=== PATIENT | female | born 1955 | race Caucasian/White ===

== ENCOUNTER 2019-10-23 15:20 | Outpatient (REF) | payer OTHER, SELFPAY ==
--- NOTE | 2019-10-23 13:00 | PAPFT_PTH ---
PATIENT: Rita Haider LOC: [facility] U#:[id number] AGE/SX: 64/F ROOM: RE10/23/[address]: Sophy Gomez : 1955 BED: DIS: 10/23/2019 SPEC #: [id number] RECD: 10/24/19 13:03 STATUS: FLORINA BLACKWELL #: [id number] JHONATAN: 10/23/19 13:[address]: Sophy Gomez DEPT: [facility] Cytology RECD BY: Harriet Aguilar Tissues: 1 - CX/ENDOCX FOR PAP SMEARS Procedures: PAP THIN PREP/UVM Screening Comments: [id number]
== END 2019-10-23 15:40 ==
LOC: NCHCN 15:20
PROVIDERS: PCP Physician Assistant Medical; Visit Provider Physician Assistant Medical
DX: Z12.4 Encounter for screening for malignant neoplasm of cervix (principal); Z01.419 Encounter for gynecological examination (general) (routine) without abnormal findings
CPT/HCPCS: 88142

== ENCOUNTER 2019-12-25 10:55 | Outpatient (REF) | payer OTHER, SELFPAY ==
[2019-12-25 21:40] LABS: ALT 44 U/L (14-59); AST 27 U/L (15-37); Albumin 3.9 g/dL (3.4-5.0); Alkaline Phosphatase 90 U/L (46-116); Anion Gap 11.2 mmol/L (3-11); BUN 18 mg/dL (7-18); Bilirubin, Total 0.3 mg/dL (0.2-1.0); CO2 25.8 mmol/L (21.0-32.0); CREATININE 0.79 mg/dL (0.55-1.02); Calcium 8.9 mg/dL (8.5-10.1); Calculated LDL 111 mg/dL (<100); Chloride 106 mmol/L (98-107); Cholesterol 209 mg/dL (<200); Glucose 96 mg/dL (74-106); HDL Cholesterol 63 mg/dL (40-60); Potassium 4.5 mmol/L (3.5-5.1); Sodium 143 mmol/L (136-145); TSH (W/Ref FT4) 0.59 uIU/mL (0.36-3.74); Total Protein 6.8 g/dL (6.4-8.2); Triglyceride 175 mg/dL (<150)
== END 2019-12-25 11:15 ==
LOC: NCHCN 10:55
PROVIDERS: PCP Physician Assistant Medical; Visit Provider Physician Assistant Medical
DX: Z00.00 Encounter for general adult medical examination without abnormal findings (principal); Z13.220 Encounter for screening for lipoid disorders; Z13.29 Encounter for screening for other suspected endocrine disorder; Z13.228 Encounter for screening for other metabolic disorders
CPT/HCPCS: 80053; 80061; 84443

== ENCOUNTER → 2020-08-27 17:32 | Outpatient (REF) | payer OTHER, SELFPAY ==
[2020-08-27 20:14] LABS: Anion Gap 8.5 mmol/L (3-11); BUN 16 mg/dL (7-18); CO2 28.5 mmol/L (21.0-32.0); CREATININE 0.69 mg/dL (0.55-1.02); Calcium 9.2 mg/dL (8.5-10.1); Chloride 104 mmol/L (98-107); Glucose 83 mg/dL (74-106); Magnesium 1.8 mg/dL (1.8-2.4); Potassium 4.5 mmol/L (3.5-5.1); Sodium 141 mmol/L (136-145)
[2020-08-27 20:19] LABS: Ferritin 1642 ng/mL (8-252)
[2020-08-29 09:31] LABS: ALT 76 U/L (14-59); AST 40 U/L (15-37); Albumin 4.4 g/dL (3.4-5.0); Alkaline Phosphatase 86 U/L (46-116); Bilirubin, Direct 0.13 mg/dL (0.00-0.20); Bilirubin, Total 0.6 mg/dL (0.2-1.0); Total Protein 7.2 g/dL (6.4-8.2)
[2020-08-29 10:05] LABS: Iron 204 ug/dL (50-170); Total Iron Binding Capacity 199 ug/dL (250-450); Transferrin Sat 103 % (15-50)
== END ==
LOC: NCHCN 17:32
PROVIDERS: PCP Physician Assistant Medical; Visit Provider Physician Assistant Medical
DX: G25.81 Restless legs syndrome (principal); R79.0 Abnormal level of blood mineral
CPT/HCPCS: 80048; 80076; 82728; 83540; 83550; 83735

== ENCOUNTER 2020-09-16 19:42 | Outpatient (REF) | payer OTHER, SELFPAY ==
[2020-09-16 19:55] LABS: Abs Immature Grans 0.03 10^3/uL (0.0-0.06); Absolute Basophil Count 0.03 10^3/uL (0.0-0.2); Absolute Eosinophil Count 0.04 10^3/uL (0.0-0.7); Absolute Lymphocyte Count 1.98 10^3/uL (1.2-3.4); Absolute Monocyte Count 0.47 10^3/uL (0.1-0.8); Absolute Neutrophil Count 4.12 10^3/uL (1.2-6.7); Basophils % 0.4; Eosinophils % 0.6; HCT 42.3 % (36.0-46.0); Immature Grans % 0.4; Lymphocytes % 29.7; MCH 33.1 pg (27.0-33.0); MCHC 33.1 % (32.0-36.0); MPV 10.9 fL (8.0-11.0); Neutrophils % 61.9; Nucleated RBC 0 %; Platelet Count 209 10^3/uL (130-400); RBC 4.23 10^6/uL (3.93-5.22); RDW 12.7 % (11.7-14.6); RDW-SD 46.7 fL; WBC 6.67 10^3/uL (4.4-10.8)
== END 2020-09-16 20:02 ==
LOC: NCHCN 19:42
PROVIDERS: PCP Physician Assistant Medical; Visit Provider Physician Assistant Medical
DX: R79.0 Abnormal level of blood mineral (principal)
CPT/HCPCS: 85025

== ENCOUNTER 2020-09-23 00:29 | Outpatient (CLI) | payer OTHER, SELFPAY ==
--- NOTE | 2020-09-23 | DI.US_ITS ---
EXAM: US ABDOMEN CLINICAL HISTORY: ELEVATED FERRITIN,R79.89,? OCCULT LIVER DISEASE TECHNIQUE: Ultrasound abdomen performed using standard protocol. COMPARISON: No exams were available for comparison FINDINGS: ABDOMINAL AORTA AND IVC: Visualized portions normal caliber. PANCREAS: Normal where visualized. LIVER: There is diffuse increased echogenicity of the liver. Hepatopedal flow in the Portal Vein. Th e liver measures 14.8 cm in length. GALLBLADDER: No evidence of cholelithiasis. No evidence of wall thickening. No pericholecystic fluid identified. BILIARY SYSTEM: Common bile duct measures < 7 mm. No intrahepatic biliary ductal dilation. BENOIT'S SIGN: Negative. KIDNEYS: Kidneys are symmetric in size. No evidence of renal calculi. No evidence of hydronephrosis. No renal mass or cyst identified. SPLEEN: Not enlarged. ASCITES: None seen. IMPRESSION: Diffuse increased echogenicity of the liver. This may represent fatty infiltration. DATA REPOSITORY:
== END 2020-09-23 00:49 ==
PROVIDERS: PCP Physician Assistant Medical; Visit Provider Internal Medicine Hematology & Oncology
DX: R79.89 Other specified abnormal findings of blood chemistry (principal)
CPT/HCPCS: 76700

== ENCOUNTER 2020-09-30 02:23 | Outpatient (RCR) | payer OTHER, SELFPAY ==
[2020-09-23 09:35] LABS: HCT 42.2 % (36.0-46.0); HGB 14.4 g/dL (11.2-15.7); MCH 33.5 pg (27.0-33.0); MCHC 34.1 % (32.0-36.0); MCV 98.1 fL (80-95); MPV 10.8 fL (8.0-11.0); Platelet Count 165 10^3/uL (130-400); RDW 12.7 % (11.7-14.6); RDW-SD 45.4 fL; WBC 5.28 10^3/uL (4.4-10.8)
[2020-09-30 12:46] LABS: HGB 13.1 g/dL (11.2-15.7); MCH 33.2 pg (27.0-33.0); MCHC 34.5 % (32.0-36.0); MCV 96.2 fL (80-95); MPV 10.3 fL (8.0-11.0); Platelet Count 246 10^3/uL (130-400); RBC 3.95 10^6/uL (3.93-5.22); RDW 12.8 % (11.7-14.6); WBC 8.29 10^3/uL (4.4-10.8)
[2020-09-30 13:32] LABS: ALT 45 U/L (14-59); AST 25 U/L (15-37); Albumin 4.1 g/dL (3.4-5.0); Alkaline Phosphatase 72 U/L (46-116); Anion Gap 9.5 mmol/L (3-11); BUN 15 mg/dL (7-18); Bilirubin, Total 0.4 mg/dL (0.2-1.0); CO2 27.5 mmol/L (21.0-32.0); CREATININE 0.77 mg/dL (0.55-1.02); Calcium 8.7 mg/dL (8.5-10.1); Chloride 103 mmol/L (98-107); GGT 17 U/L (5-55); Glucose 122 mg/dL (74-106); Potassium 3.7 mmol/L (3.5-5.1); Sodium 140 mmol/L (136-145); Total Protein 7.1 g/dL (6.4-8.2)
[2020-09-30 13:33] LABS: Ferritin 1325 ng/mL (8-252)
[2020-10-09 10:49] LABS: Specimen WB Whole Blood
== END 2020-10-07 23:59 | disposition home or self-care (01) ==
LOC: INF 02:23
PROVIDERS: PCP Physician Assistant Medical; Visit Provider Internal Medicine Hematology & Oncology
DX: E83.110 Hereditary hemochromatosis (principal)
CPT/HCPCS: 36415; 80053; 85027; 99195; 81256; 82728; 82977

== ENCOUNTER 2020-11-05 02:45 | Outpatient (RCR) | payer OTHER, SELFPAY ==
[2020-10-08 12:44] LABS: HCT 36.2 % (36.0-46.0); HGB 12.2 g/dL (11.2-15.7); MCH 33.6 pg (27.0-33.0); MCHC 33.7 % (32.0-36.0); MCV 99.7 fL (80-95); MPV 10.1 fL (8.0-11.0); Platelet Count 249 10^3/uL (130-400); RBC 3.63 10^6/uL (3.93-5.22); RDW 13.2 % (11.7-14.6); WBC 6.76 10^3/uL (4.4-10.8)
[2020-10-22 12:44] LABS: HCT 38.1 % (36.0-46.0); HGB 12.9 g/dL (11.2-15.7); MCH 34.3 pg (27.0-33.0); MCHC 33.9 % (32.0-36.0); MCV 101.3 fL (80-95); MPV 10.2 fL (8.0-11.0); Platelet Count 247 10^3/uL (130-400); RBC 3.76 10^6/uL (3.93-5.22); RDW-SD 48.6 fL; WBC 6.02 10^3/uL (4.4-10.8)
[2020-10-22] MEDS: Normal Saline Flush 10 ML SYR IVP (13:15)
[2020-10-22 13:17] LABS: Ferritin 809 ng/mL (8-252)
[2020-10-29 13:01] LABS: HCT 37.5 % (36.0-46.0); HGB 12.7 g/dL (11.2-15.7); MCH 34.7 pg (27.0-33.0); MCHC 33.9 % (32.0-36.0); MCV 102.5 fL (80-95); MPV 10.3 fL (8.0-11.0); Platelet Count 262 10^3/uL (130-400); RBC 3.66 10^6/uL (3.93-5.22); RDW 13.2 % (11.7-14.6); RDW-SD 49.5 fL; WBC 6.08 10^3/uL (4.4-10.8)
[2020-10-29] MEDS: Normal Saline Flush 10 ML SYR IVP (13:49)
[2020-11-05] MEDS: Normal Saline Flush 10 ML SYR IVP (12:34)
[2020-11-05 12:48] LABS: HCT 37.2 % (36.0-46.0); HGB 12.4 g/dL (11.2-15.7); MCH 34.2 pg (27.0-33.0); MCHC 33.3 % (32.0-36.0); MCV 102.5 fL (80-95); MPV 10.3 fL (8.0-11.0); Platelet Count 279 10^3/uL (130-400); RBC 3.63 10^6/uL (3.93-5.22); RDW 12.8 % (11.7-14.6); RDW-SD 47.9 fL; WBC 5.66 10^3/uL (4.4-10.8)
== END 2020-11-07 23:59 | disposition home or self-care (01) ==
LOC: INF 02:45
PROVIDERS: PCP Physician Assistant Medical; Visit Provider Internal Medicine Hematology & Oncology
DX: E83.110 Hereditary hemochromatosis (principal)
CPT/HCPCS: 36415; 85027; 99195; 82728

== ENCOUNTER 2020-11-07 01:41 | Outpatient (CLI) | payer OTHER, SELFPAY ==
--- NOTE | 2020-11-07 12:20 | DI.US_ITS ---
APPROVED REPORT EXAM: Comprehensive 2D, Doppler, and color-flow Echocardiogram Patient Location: Out-Patient Cold Working Inspector: Gabriela Huertas RDCS (AE) Indications: Elevated ferritin Other Information Study Quality: Adequate Conclusion Normal left ventricular wall thickness and chamber size. Estimated ejection fraction is 60%. There are no segmental wall motion abnormalities Normal right ventricular size and systolic function Both atria are normal in size There are no structural or hemodynamically significant valvular abnormalities Trivial circumferential pericardial effusion Wall motion Left Ventricle The left ventricle is normal size. The left ventricular systolic function is normal. The left ventric ular ejection fraction is within the normal range. There is normal left ventricular wall thickness. T here is normal LV segmental wall motion. There is no ventricular septal defect visualized. LVEF is 60 %. Right Ventricle The right ventricle is normal size. The right ventricular systolic function is normal. Atria The left atrium size is normal. The right atrium size is normal. The interatrial septum is intact wit h no evidence for an atrial septal defect. Aortic Valve The aortic valve is normal in structure. Aortic valve is trileaflet. There is no aortic valvular sten osis. No aortic regurgitation is present. Mitral Valve The mitral valve is normal in structure. No evidence of mitral valve stenosis. Trace mitral regurgita tion. Tricuspid Valve The tricuspid valve is normal in structure. There is no tricuspid valve stenosis. Trace tricuspid reg urgitation. Unable to assess PA pressure. Pulmonic Valve The pulmonary valve is normal in structure. There is no pulmonic valvular stenosis. Trace pulmonic re gurgitation. Great Vessels The aortic root is normal in size. The ascending aorta is normal in size. IVC is normal in size and c ollapses >50% with inspiration. Pericardium Trivial circumferential pericardial effusion. 2D Dimensions IVSD d PLAX 0.81 cm F: 0.6-1.0 LV Vol A2C d MOD 80.9 mL LVPW d PLAX 0.81 cm F: 0.6 - 1.0 LV Vol A4C d MOD 75.3 mL LVID d PLAX 4.75 cm F: 3.8 - 5.2 LA vol/ BSA A2C s A-L 30.2 mL/m2 LVDs 3.10 cm F: 2.2 - 3.5 LA vol/ BSA A4C s A-L 30.9 mL/m2 Ao Root d 2.84 cm F: 2.7 - 3.3 LA Vol/ BSA Biplane s A-L 31.7 mL/m2 RA Area A4C 11.88 cm2 LA Area A4C s MOD 17.99 cm2 RA Vol/ BSA A4C s A-L 16.7 mL/m2 LA Area A2C s MOD 17.13 cm2 Ao Asc Diam d 2.98 cm F: 2.3 - 3.1 LV EF A4C MOD 60.0 % LV EF Teichholz 62.7 % LV EF A2C MOD 63.9 % LVEF (Moore's) 61.43 % F: 54 - 74 LV EF Biplane MOD 61.4 % LV Volume 64.71 mL F: 46 - 106 SV 50.12 mL LV Volume Index 38.06 mL/m2 F: 29 - 61 SV Index 29.37 mL/m2 LV Vol Biplane MOD 81.6 mL FS 33.85 % M-Mode TAPSE 2.12 cm (M/F) >1.7 LV Diastology MV E' medial 0.138 (>0.07 m/s) E/A Ratio 1.3 LV E/e MED 7.65 (<14) MV E Vmax 1.06 (0.4-1.3 m/s) MV E' lateral 0.143 (>0.1 m/s) MV A Vmax 0.80 (0.4-1.3 m/s) LV E/e LAT 7.40 (<14) MV E/A Ratio 1.30 MV E/E' medial 7.67 MV E/E' lateral 7.41 Aortic Valve LVOT Area 3.01 cm2 AoV Area Vmax 2.30 cm2 LVOT Vmax 1.34 m/s AoV Area/ BSA (Vmax) 1.35 cm2/m2 LVOT Mean Mikal. 0.77 m/s LEANN Mean Mikal. 2.06 cm2 LVOT Peak Grad 7.1 mmHg LEANN Mean Mikal. Index 1.21 cm2/m2 LVOT Mean Grad 3.0 mmHg LVOT VTI 0.277 m LVOT Diam s 1.95 cm AoV Vmax 1.75 m/s Velocity Ratio 0.76 AoV Mean Mikal. 1.12 m/s AoV Peak Grad 12.2 mmHg LVOT SV 83.39 mL AoV Mean Grad 6.0 mmHg AoV VTI 0.284 m AoV Area VTI 2.94 cm2 AoV Area/ BSA (VTI) 1.72 cm/m2 Mitral Valve MV DT 169 (160-240 msec) MV PHT 49 msec MV Area PHT 4.50 cm2 Pulmonary Valve PV Vmax 1.22 (0.5-1.5 m/s) RVOT Peak Gr. 3.15 mmHg PV Peak Grad 6.0 mmHg RVOT Mean Gr. 1.75 mmHg PV Mean Grad 3.2 mmHg RVOT VTI 0.174 m PV VTI 0.244 m RVOT Vmax 0.89 m/s
== END 2020-11-07 02:01 ==
PROVIDERS: PCP Physician Assistant Medical; Visit Provider Internal Medicine Hematology & Oncology
DX: R79.89 Other specified abnormal findings of blood chemistry (principal)
CPT/HCPCS: 93306

== ENCOUNTER 2020-11-25 01:10 | Outpatient (CLI) | payer OTHER, SELFPAY ==
--- NOTE | 2020-11-25 | DI.MAMMO_ITS ---
EXAM: MG MAMMO SCREENING CLINICAL HISTORY: SCREENING,[facility], [facility],Z00.00 TECHNIQUE: Bilateral full field digital CC and MLO mammographic images were obtained with 3D tomosyn thesis and utilizing computer aided detection (CAD). COMPARISON: Available for comparison. FINDINGS: Masses/Architectural Distortion: There is asymmetric breast tissue in the upper left breast on the me diolateral oblique view this area should be further evaluated with spot compression view. Microcalcifications: No suspicious pleomorphic-type are seen. Skin Thickening/Nipple Retraction: None. IMPRESSION: 1. Asymmetric breast tissue in the upper left breast on the MLO view. 2. Spot compression view and a left breast ultrasound are requested for further evaluation. BI-RADS Category 0 - Assessment Incomplete: Need additional imaging evaluation Breast Density - Category B - Scattered areas of fibroglandular density Breast density category C or D implies that the patient has dense breast tissue. Dense breast tissue is very common and is not abnormal but dense breast tissue can make it harder to find cancer on a ma mmogram. Also, dense breast tissue may increase their breast cancer risk. This information about the result of the mammogram report was provided to the patient to raise their awareness. Use this report when you speak with the patient about their risks for breast cancer, which includes their family hist ory. At that time, you may recommend for more screening tests (Ultrasound or MRI) as they might be us eful based on their risk. A negative radiographic report should not delay biopsy if a dominant or clinically suspicious mass is present. Up to ten percent of cancers are not identified on mammography. A negative report may reinforce clinical impression. Adenosis and dense breasts may obscure an underlying neoplasm. False positive reports average 6 to 10%. Patient will receive a letter notifying them of these results.
== END 2020-11-25 01:30 ==
PROVIDERS: PCP Physician Assistant Medical; Visit Provider Physician Assistant Medical
DX: Z12.31 Encounter for screening mammogram for malignant neoplasm of breast (principal); N64.89 Other specified disorders of breast
CPT/HCPCS: 77063; 77067

== ENCOUNTER 2020-11-29 03:43 | Outpatient (CLI) | payer OTHER, SELFPAY ==
--- NOTE | 2020-11-29 | DI.US_ITS ---
EXAM: MG MAMMO SCREEN CALL BACK UNI and U/S breast LT limited CLINICAL HISTORY: F/U MAMMO, ASYMMETRIC BREAST TISSUE UPPER LT BREAST. TECHNIQUE: Craniocaudal and mediolateral oblique Full Field Digital Mammography views of the left br east with Computer Aided Diagnosis followed by Tomosynthesis and left breast ultrasound. COMPARISON: Comparison with prior examinations. FINDINGS: Mammography/Tomosynthesis: Masses/Architectural Distortion: None seen. Microcalcifictions: No suspicious pleomorphic-type are seen. Skin Thickening/Nipple Retraction: None. Left breast US: Echotexture: Normal appearance of the glandular tissue. Shadowing: No suspicious foci. Cyst: None. Solid lesions: Sonographically benign-appearing lymph nodes are seen in the left axilla. There homog eneously hypoechoic with a vascular echogenic notch. The largest measures 2.4 cm. Ductal dilation: None. IMPRESSION: 1. No evidence of malignancy is noted. 2. Unless there is more urgent need, follow-up screening mammography is recommended, as per [employer] guidelines. 3. The findings were discussed with the patient on the date of the examination. BI-RADS Category 1 - Negative Breast Density - Category B - Scattered areas of fibroglandular density Breast density Category C or D implies that the patient has dense breast tissue. Dense breast tissue can make it harder to find cancer on a mammogram. Dense breast tissue is also associated with an incr eased risk of breast cancer. This information about the result of the mammogram report was provided to the patient to raise their awareness. Use this report when you speak with the patient about their risks for breast cancer, which includes their family history. At that time, you may recommend additional screening tests (Ultrasoun d or MRI) as these tests may add significant information. A negative radiographic report should not delay biopsy if a dominant or clinically suspicious mass is present. Up to ten percent of cancers are not identified on mammography. A negative report may reinforce clinical impression. Adenosis and dense breasts may obscure an underlying neoplasm. False positive reports average 6 to 10%. Patient will receive a letter notifying them of these results.
== END 2020-11-29 04:03 ==
PROVIDERS: PCP Physician Assistant Medical; Visit Provider Physician Assistant Medical
DX: Z12.31 Encounter for screening mammogram for malignant neoplasm of breast (principal); R92.8 Other abnormal and inconclusive findings on diagnostic imaging of breast; R59.0 Localized enlarged lymph nodes
CPT/HCPCS: 76642; 77063; 77067

== ENCOUNTER 2020-12-03 02:53 | Outpatient (RCR) | payer OTHER, SELFPAY ==
[2020-11-12 12:43] LABS: HCT 32.8 % (36.0-46.0); MCH 34.4 pg (27.0-33.0); MCHC 33.5 % (32.0-36.0); MCV 102.5 fL (80-95); MPV 10.3 fL (8.0-11.0); Platelet Count 234 10^3/uL (130-400); RDW-SD 48.7 fL; WBC 4.65 10^3/uL (4.4-10.8)
[2020-11-12 13:08] LABS: Ferritin 638 ng/mL (8-252)
[2020-11-19] MEDS: Normal Saline Flush 10 ML SYR IVP (12:50)
[2020-11-19 12:58] LABS: HCT 35.7 % (36.0-46.0); HGB 12.3 g/dL (11.2-15.7); MCH 34.5 pg (27.0-33.0); MCHC 34.5 % (32.0-36.0); MPV 10.3 fL (8.0-11.0); Platelet Count 237 10^3/uL (130-400); RBC 3.57 10^6/uL (3.93-5.22); RDW 12.7 % (11.7-14.6); RDW-SD 46.7 fL; WBC 6.01 10^3/uL (4.4-10.8)
[2020-11-26 12:50] LABS: HCT 34.8 % (36.0-46.0); HGB 11.9 g/dL (11.2-15.7); MCH 34.6 pg (27.0-33.0); MCHC 34.2 % (32.0-36.0); MCV 101.2 fL (80-95); MPV 10.5 fL (8.0-11.0); Platelet Count 242 10^3/uL (130-400); RBC 3.44 10^6/uL (3.93-5.22); RDW 12.7 % (11.7-14.6); RDW-SD 46.9 fL; WBC 5.14 10^3/uL (4.4-10.8)
[2020-11-26] MEDS: Normal Saline Flush 10 ML SYR IVP (13:50)
[2020-12-03] MEDS: Normal Saline Flush 10 ML SYR IVP (12:35)
[2020-12-03 12:48] LABS: HCT 34.2 % (36.0-46.0); HGB 11.2 g/dL (11.2-15.7); MCHC 32.7 % (32.0-36.0); MPV 10.1 fL (8.0-11.0); Platelet Count 267 10^3/uL (130-400); RBC 3.29 10^6/uL (3.93-5.22); RDW 13.2 % (11.7-14.6); RDW-SD 49.4 fL
[2020-12-03 13:13] LABS: Ferritin 552 ng/mL (8-252)
== END 2020-12-08 23:59 | disposition home or self-care (01) ==
LOC: INF 02:53
PROVIDERS: PCP Physician Assistant Medical; Visit Provider Internal Medicine Hematology & Oncology
DX: E83.110 Hereditary hemochromatosis (principal)
CPT/HCPCS: 36415; 85027; 99195; 82728; 85025

== ENCOUNTER 2020-12-31 01:50 | Outpatient (RCR) | payer OTHER, SELFPAY ==
[2020-12-10 12:44] LABS: HCT 40.1 % (36.0-46.0); HGB 13.6 g/dL (11.2-15.7); MCH 34.5 pg (27.0-33.0); MCHC 33.9 % (32.0-36.0); MCV 101.8 fL (80-95); MPV 10.3 fL (8.0-11.0); Platelet Count 231 10^3/uL (130-400); RBC 3.94 10^6/uL (3.93-5.22); RDW 12.5 % (11.7-14.6); RDW-SD 47.6 fL; WBC 7.07 10^3/uL (4.4-10.8)
[2020-12-10] MEDS: Normal Saline Flush 10 ML SYR IVP (13:27)
[2020-12-17] MEDS: Normal Saline Flush 10 ML SYR IVP (12:38)
[2020-12-17 12:48] LABS: HCT 37.1 % (36.0-46.0); HGB 12.4 g/dL (11.2-15.7); MCH 34.3 pg (27.0-33.0); MCHC 33.4 % (32.0-36.0); MCV 102.5 fL (80-95); MPV 10.3 fL (8.0-11.0); Platelet Count 253 10^3/uL (130-400); RBC 3.62 10^6/uL (3.93-5.22); RDW 12.6 % (11.7-14.6); RDW-SD 47.4 fL; WBC 5.77 10^3/uL (4.4-10.8)
[2020-12-24] MEDS: Normal Saline Flush 10 ML SYR IVP (09:07)
[2020-12-24 09:17] LABS: HCT 35.4 % (36.0-46.0); HGB 11.9 g/dL (11.2-15.7); MCH 34.4 pg (27.0-33.0); MCHC 33.6 % (32.0-36.0); MCV 102.3 fL (80-95); MPV 10.1 fL (8.0-11.0); Platelet Count 255 10^3/uL (130-400); RBC 3.46 10^6/uL (3.93-5.22); RDW 13.2 % (11.7-14.6); RDW-SD 49.6 fL
[2020-12-24 09:41] LABS: Ferritin 549 ng/mL (8-252)
[2020-12-31 13:06] LABS: HCT 35.4 % (36.0-46.0); HGB 11.9 g/dL (11.2-15.7); MCH 34.6 pg (27.0-33.0); MCHC 33.6 % (32.0-36.0); MCV 102.9 fL (80-95); MPV 10.3 fL (8.0-11.0); Platelet Count 266 10^3/uL (130-400); RBC 3.44 10^6/uL (3.93-5.22); RDW 13.5 % (11.7-14.6); RDW-SD 51.6 fL; WBC 6.42 10^3/uL (4.4-10.8)
[2020-12-31] MEDS: Normal Saline Flush 10 ML SYR IVP (13:36)
== END 2021-01-05 23:59 | disposition home or self-care (01) ==
LOC: INF 01:50
PROVIDERS: PCP Physician Assistant Medical; Visit Provider Internal Medicine Hematology & Oncology
DX: E83.110 Hereditary hemochromatosis (principal)
CPT/HCPCS: 36415; 85027; 99195; 82728

== ENCOUNTER 2021-02-04 02:58 | Outpatient (RCR) | payer OTHER, SELFPAY ==
[2021-01-07] MEDS: Normal Saline Flush 10 ML SYR IVP (12:39)
[2021-01-07 13:03] LABS: HCT 35.4 % (36.0-46.0); HGB 11.7 g/dL (11.2-15.7); MCH 34.8 pg (27.0-33.0); MCHC 33.1 % (32.0-36.0); MCV 105.4 fL (80-95); MPV 10.4 fL (8.0-11.0); Platelet Count 236 10^3/uL (130-400); RBC 3.36 10^6/uL (3.93-5.22); RDW 14.1 % (11.7-14.6); RDW-SD 54.5 fL; WBC 6.79 10^3/uL (4.4-10.8)
[2021-01-14] MEDS: Normal Saline Flush 10 ML SYR IVP (12:35)
[2021-01-14 12:44] LABS: HCT 36.2 % (36.0-46.0); HGB 12.3 g/dL (11.2-15.7); MCH 35.1 pg (27.0-33.0); MCV 103.4 fL (80-95); MPV 9.8 fL (8.0-11.0); Platelet Count 264 10^3/uL (130-400); RDW 13.7 % (11.7-14.6); RDW-SD 52.4 fL; WBC 7.66 10^3/uL (4.4-10.8)
[2021-01-14 13:28] LABS: Ferritin 782 ng/mL (8-252)
[2021-01-21 12:36] LABS: HCT 37.2 % (36.0-46.0); HGB 12.5 g/dL (11.2-15.7); MCH 35.3 pg (27.0-33.0); MCHC 33.6 % (32.0-36.0); MCV 105.1 fL (80-95); MPV 9.9 fL (8.0-11.0); Platelet Count 283 10^3/uL (130-400); RBC 3.54 10^6/uL (3.93-5.22); RDW 14.1 % (11.7-14.6); RDW-SD 53.3 fL; WBC 9.25 10^3/uL (4.4-10.8)
[2021-01-21] MEDS: Normal Saline Flush 10 ML SYR IVP (12:57)
[2021-01-28 12:41] LABS: Abs Immature Grans 0.04 10^3/uL (0.0-0.06); Absolute Basophil Count 0.05 10^3/uL (0.0-0.2); Absolute Eosinophil Count 0.12 10^3/uL (0.0-0.7); Absolute Lymphocyte Count 2.28 10^3/uL (1.2-3.4); Absolute Monocyte Count 0.46 10^3/uL (0.1-0.8); Absolute Neutrophil Count 3.06 10^3/uL (1.2-6.7); Basophils % 0.8; HCT 36.4 % (36.0-46.0); HGB 12.2 g/dL (11.2-15.7); Immature Grans % 0.7; Lymphocytes % 37.9; MCH 35.3 pg (27.0-33.0); MCHC 33.5 % (32.0-36.0); MCV 105.2 fL (80-95); MPV 10.2 fL (8.0-11.0); Monocytes % 7.7; Neutrophils % 50.9; Nucleated RBC 0 %; Platelet Count 275 10^3/uL (130-400); RBC 3.46 10^6/uL (3.93-5.22); RDW 13.9 % (11.7-14.6); RDW-SD 53.6 fL; WBC 6.01 10^3/uL (4.4-10.8)
[2021-01-28 13:13] LABS: ALT 31 U/L (14-59); AST 19 U/L (15-37); Albumin 3.9 g/dL (3.4-5.0); Alkaline Phosphatase 67 U/L (46-116); Anion Gap 9.3 mmol/L (3-11); BUN 13 mg/dL (7-18); Bilirubin, Total 0.3 mg/dL (0.2-1.0); CO2 25.7 mmol/L (21.0-32.0); CREATININE 0.8 mg/dL (0.55-1.02); Calcium 8.7 mg/dL (8.5-10.1); Chloride 108 mmol/L (98-107); Ferritin 390 ng/mL (8-252); Glucose 142 mg/dL (74-106); Potassium 4.1 mmol/L (3.5-5.1); Sodium 143 mmol/L (136-145)
[2021-01-28 14:13] LABS: Diff Comment Diff Reviewed; Macrocytosis 2+
[2021-01-28] MEDS: Normal Saline Flush 10 ML SYR IVP (14:21)
[2021-02-04 12:53] LABS: HCT 39.6 % (36.0-46.0); HGB 13.4 g/dL (11.2-15.7); MCH 35.3 pg (27.0-33.0); MCHC 33.8 % (32.0-36.0); MCV 104.2 fL (80-95); MPV 10.4 fL (8.0-11.0); Platelet Count 225 10^3/uL (130-400); RDW 13.3 % (11.7-14.6); RDW-SD 51.5 fL; WBC 6.23 10^3/uL (4.4-10.8)
[2021-02-04 13:16] LABS: Ferritin 380 ng/mL (8-252)
[2021-02-04] MEDS: Normal Saline Flush 10 ML SYR IVP (14:10)
== END 2021-02-05 23:59 | disposition home or self-care (01) ==
LOC: INF 02:58
PROVIDERS: PCP Physician Assistant Medical; Visit Provider Internal Medicine Hematology & Oncology
DX: R79.89 Other specified abnormal findings of blood chemistry (principal); E83.110 Hereditary hemochromatosis
CPT/HCPCS: 36415; 80053; 85027; 99195; 82728; 85025

== ENCOUNTER 2021-03-04 02:36 | Outpatient (RCR) | payer OTHER, SELFPAY ==
[2021-02-11 12:48] LABS: HGB 12.2 g/dL (11.2-15.7); MCH 34.9 pg (27.0-33.0); MCHC 33.9 % (32.0-36.0); MCV 102.9 fL (80-95); MPV 11.1 fL (8.0-11.0); Platelet Count 183 10^3/uL (130-400); RDW 13.2 % (11.7-14.6); RDW-SD 50.3 fL; WBC 6.23 10^3/uL (4.4-10.8)
[2021-02-11] MEDS: Normal Saline Flush 10 ML SYR IVP (13:49)
[2021-02-18 13:15] LABS: HCT 36.7 % (36.0-46.0); HGB 12.3 g/dL (11.2-15.7); MCH 35.2 pg (27.0-33.0); MCHC 33.5 % (32.0-36.0); MCV 105.2 fL (80-95); MPV 10.2 fL (8.0-11.0); Platelet Count 245 10^3/uL (130-400); RBC 3.49 10^6/uL (3.93-5.22); RDW 13.2 % (11.7-14.6); RDW-SD 51.1 fL; WBC 7.63 10^3/uL (4.4-10.8)
[2021-02-18] MEDS: Normal Saline Flush 10 ML SYR IVP (14:07)
[2021-02-25] MEDS: Normal Saline Flush 10 ML SYR IVP (12:10)
[2021-02-25 12:15] LABS: HCT 40.7 % (36.0-46.0); HGB 13.5 g/dL (11.2-15.7); MCH 35.3 pg (27.0-33.0); MCHC 33.2 % (32.0-36.0); MCV 106.5 fL (80-95); Platelet Count 225 10^3/uL (130-400); RBC 3.82 10^6/uL (3.93-5.22); RDW 13.1 % (11.7-14.6); RDW-SD 51.7 fL; WBC 6.17 10^3/uL (4.4-10.8)
[2021-02-25 12:38] LABS: Ferritin 252 ng/mL (8-252)
== END 2021-03-07 23:59 | disposition home or self-care (01) ==
LOC: INF 02:36
PROVIDERS: PCP Physician Assistant Medical; Visit Provider Internal Medicine Hematology & Oncology
DX: R79.89 Other specified abnormal findings of blood chemistry (principal); E83.110 Hereditary hemochromatosis
CPT/HCPCS: 36415; 85027; 99195; 82728

== ENCOUNTER 2021-03-25 02:38 | Outpatient (RCR) | payer OTHER, SELFPAY ==
[2021-03-11 12:41] LABS: HCT 42.1 % (36.0-46.0); HGB 14.4 g/dL (11.2-15.7); MCH 35.7 pg (27.0-33.0); MCHC 34.2 % (32.0-36.0); MCV 104.5 fL (80-95); MPV 10.6 fL (8.0-11.0); Platelet Count 208 10^3/uL (130-400); RBC 4.03 10^6/uL (3.93-5.22); RDW 12.7 % (11.7-14.6); RDW-SD 49.4 fL; WBC 5.28 10^3/uL (4.4-10.8)
[2021-03-11 13:21] LABS: Ferritin 268 ng/mL (8-252)
[2021-03-18 12:55] LABS: HGB 15.1 g/dL (11.2-15.7); MCH 34.6 pg (27.0-33.0); MCHC 33.6 % (32.0-36.0); MPV 11.5 fL (8.0-11.0); Platelet Count 266 10^3/uL (130-400); RBC 4.37 10^6/uL (3.93-5.22); RDW 12.6 % (11.7-14.6); RDW-SD 47.8 fL; WBC 5.78 10^3/uL (4.4-10.8)
[2021-03-18] MEDS: Normal Saline Flush 10 ML SYR IVP (13:43)
[2021-03-25 12:42] LABS: HCT 40.1 % (36.0-46.0); HGB 13.7 g/dL (11.2-15.7); MCH 34.6 pg (27.0-33.0); MCHC 34.2 % (32.0-36.0); MCV 101.3 fL (80-95); MPV 10.4 fL (8.0-11.0); Platelet Count 260 10^3/uL (130-400); RBC 3.96 10^6/uL (3.93-5.22); RDW 12.2 % (11.7-14.6); RDW-SD 45.7 fL; WBC 7.94 10^3/uL (4.4-10.8)
[2021-03-25 13:07] LABS: Ferritin 209 ng/mL (8-252)
== END 2021-04-07 23:59 | disposition home or self-care (01) ==
LOC: INF 02:38
PROVIDERS: PCP Physician Assistant Medical; Visit Provider Internal Medicine Hematology & Oncology
DX: R79.89 Other specified abnormal findings of blood chemistry (principal)
CPT/HCPCS: 36415; 85027; 99195; 82728; 84550

== ENCOUNTER 2021-05-01 13:10 | Outpatient (RCR) | payer OTHER, SELFPAY ==
[2021-05-01 13:31] LABS: Abs Immature Grans 0.01 10^3/uL (0.0-0.06); Absolute Basophil Count 0.04 10^3/uL (0.0-0.2); Absolute Eosinophil Count 0.14 10^3/uL (0.0-0.7); Absolute Lymphocyte Count 2.39 10^3/uL (1.2-3.4); Absolute Monocyte Count 0.46 10^3/uL (0.1-0.8); Absolute Neutrophil Count 2.85 10^3/uL (1.2-6.7); Basophils % 0.7; Eosinophils % 2.4; HCT 42.2 % (36.0-46.0); HGB 14.5 g/dL (11.2-15.7); Immature Grans % 0.2; Lymphocytes % 40.6; MCH 33.6 pg (27.0-33.0); MCHC 34.4 % (32.0-36.0); MCV 97.9 fL (80-95); MPV 10.5 fL (8.0-11.0); Monocytes % 7.8; Neutrophils % 48.3; Nucleated RBC 0 %; Platelet Count 262 10^3/uL (130-400); RBC 4.31 10^6/uL (3.93-5.22); RDW 11.9 % (11.7-14.6); RDW-SD 43.1 fL; WBC 5.89 10^3/uL (4.4-10.8)
[2021-05-01 13:55] LABS: ALT 25 U/L (14-59); AST 13 U/L (15-37); Alkaline Phosphatase 77 U/L (46-116); Anion Gap 9.2 mmol/L (3-11); BUN 14 mg/dL (7-18); Bilirubin, Total 0.3 mg/dL (0.2-1.0); CO2 26.8 mmol/L (21.0-32.0); CREATININE 0.7 mg/dL (0.55-1.02); Calcium 9.4 mg/dL (8.5-10.1); Chloride 105 mmol/L (98-107); Ferritin 437 ng/mL (8-252); Glucose 99 mg/dL (74-106); Potassium 4.2 mmol/L (3.5-5.1); Sodium 141 mmol/L (136-145); Total Protein 7.3 g/dL (6.4-8.2)
== END 2021-05-07 23:59 | disposition home or self-care (01) ==
LOC: INF 13:10
PROVIDERS: PCP Physician Assistant Medical; Visit Provider Internal Medicine Hematology & Oncology
DX: R79.89 Other specified abnormal findings of blood chemistry
CPT/HCPCS: 36415; 80053; 82728; 85025

== ENCOUNTER 2021-06-24 02:48 | Outpatient (RCR) | payer OTHER, SELFPAY ==
[2021-06-12 10:31] LABS: Abs Immature Grans 0.02 10^3/uL (0.0-0.06); Absolute Basophil Count 0.04 10^3/uL (0.0-0.2); Absolute Eosinophil Count 0.14 10^3/uL (0.0-0.7); Absolute Lymphocyte Count 1.91 10^3/uL (1.2-3.4); Absolute Monocyte Count 0.51 10^3/uL (0.1-0.8); Absolute Neutrophil Count 2.45 10^3/uL (1.2-6.7); Basophils % 0.8; Eosinophils % 2.8; HCT 39.4 % (36.0-46.0); HGB 13.1 g/dL (11.2-15.7); Immature Grans % 0.4; Lymphocytes % 37.7; MCH 32.2 pg (27.0-33.0); MCHC 33.2 % (32.0-36.0); MCV 96.8 fL (80-95); MPV 10.4 fL (8.0-11.0); Monocytes % 10.1; Neutrophils % 48.2; Nucleated RBC 0 %; Platelet Count 229 10^3/uL (130-400); RBC 4.07 10^6/uL (3.93-5.22); RDW 11.8 % (11.7-14.6); RDW-SD 41.9 fL; WBC 5.07 10^3/uL (4.4-10.8)
[2021-06-12 10:53] LABS: Ferritin 309 ng/mL (8-252)
== END 2021-07-08 23:59 | disposition home or self-care (01) ==
LOC: INF 02:48
PROVIDERS: Nurse Practitioner Family; PCP Physician Assistant Medical; Visit Provider Internal Medicine Hematology & Oncology
DX: E83.110 Hereditary hemochromatosis (principal)
CPT/HCPCS: 36415; 82728; 85025

== ENCOUNTER 2021-07-11 16:51 | Outpatient (REF) | payer OTHER, SELFPAY ==
[2021-07-14 14:30] LABS: COVID-19 RT-PCR UVMMC Result Negative (Negative)
== END 2021-07-11 16:52 | disposition home or self-care (01) ==
LOC: NCHCN 16:51
PROVIDERS: PCP Physician Assistant Medical; Visit Provider Physician Assistant Medical
DX: Z20.822 Contact with and (suspected) exposure to COVID-19 (principal)
CPT/HCPCS: U0003

== ENCOUNTER 2021-07-17 01:46 | Outpatient (CLI) | payer OTHER, SELFPAY ==
--- NOTE | 2021-07-17 | DI.RAD_ITS ---
Exam(s) XR LUMBAR SPINE COMPLETE EXAM: XR LUMBAR SPINE COMPLETE CLINICAL HISTORY: BILAT LEG PAIN, M79.606. TECHNIQUE: 2D digital imaging was performed. COMPARISON: No exams were available for comparison FINDINGS: There is no evidence of fracture or listhesis nor pars defects. There is advanced disc space narrowi ng at L1-2 level. Other disc spaces exhibit normal height. No scoliosis. Is sclerotic bone density is noted in the anterosuperior aspect of L3 vertebral body. This has a benign appearance. Measures 7 x 7 millimeters. No lytic lesions identified. Degenerative changes are noted in the facet joints at L5-S1 level. Facet joints above this level yossi ear unremarkable. IMPRESSION: DATA REPOSITORY: RADIATION DOSE DELIVERED:
== END 2021-07-17 02:06 ==
PROVIDERS: PCP Physician Assistant Medical; Visit Provider Physician Assistant Medical
DX: M79.604 Pain in right leg (principal); M79.605 Pain in left leg
CPT/HCPCS: 72110

== ENCOUNTER 2021-07-17 13:00 | Outpatient (RCR) | payer OTHER, SELFPAY ==
[2021-07-17] MEDS: Normal Saline Flush 10 ML SYR IVP (12:34)
[2021-07-17 12:45] LABS: Abs Immature Grans 0.02 10^3/uL (0.0-0.06); Absolute Basophil Count 0.04 10^3/uL (0.0-0.2); Absolute Eosinophil Count 0.08 10^3/uL (0.0-0.7); Absolute Lymphocyte Count 1.48 10^3/uL (1.2-3.4); Absolute Monocyte Count 0.41 10^3/uL (0.1-0.8); Absolute Neutrophil Count 3.93 10^3/uL (1.2-6.7); Basophils % 0.7; Eosinophils % 1.3; HCT 38.2 % (36.0-46.0); Immature Grans % 0.3; Lymphocytes % 24.8; MCH 32.6 pg (27.0-33.0); MCV 95.7 fL (80-95); MPV 10.4 fL (8.0-11.0); Monocytes % 6.9; Nucleated RBC 0 %; Platelet Count 209 10^3/uL (130-400); RBC 3.99 10^6/uL (3.93-5.22); RDW 12.4 % (11.7-14.6); RDW-SD 42.8 fL; WBC 5.96 10^3/uL (4.4-10.8)
[2021-07-17 13:17] LABS: Ferritin 303 ng/mL (8-252)
[2021-07-18 15:49] LABS: Magnesium 1.8 mg/dL (1.8-2.4)
[2021-07-18 16:06] LABS: ALT 25 U/L (14-59); AST 15 U/L (15-37); Alkaline Phosphatase 84 U/L (46-116); Anion Gap 8.3 mmol/L (3-11); BUN 17 mg/dL (7-18); Bilirubin, Total 0.4 mg/dL (0.2-1.0); CO2 26.7 mmol/L (21.0-32.0); CREATININE 0.8 mg/dL (0.55-1.02); Calcium 9.1 mg/dL (8.5-10.1); Chloride 104 mmol/L (98-107); Creatine Kinase 35 U/L (26-192); Glucose 181 mg/dL (74-106); Potassium 3.9 mmol/L (3.5-5.1); Sodium 139 mmol/L (136-145); Total Protein 7.1 g/dL (6.4-8.2)
== END 2021-08-07 23:59 | disposition home or self-care (01) ==
LOC: INF 13:00
PROVIDERS: Nurse Practitioner Family; PCP Physician Assistant Medical; Visit Provider Internal Medicine Hematology & Oncology
DX: E83.110 Hereditary hemochromatosis (principal); M79.604 Pain in right leg; M79.605 Pain in left leg
CPT/HCPCS: 36415; 80053; 82550; 99195; 82728; 83735; 85025

== ENCOUNTER 2021-08-29 16:08 | Outpatient (REF) | payer OTHER, SELFPAY | END 2021-08-29 16:09 | disposition home or self-care (01) | LOC: NCHCN 16:08 | PROVIDERS: PCP Physician Assistant Medical; Visit Provider Physician Assistant Medical | DX: R73.9 Hyperglycemia, unspecified (principal) | CPT/HCPCS: 83036 ==

== ENCOUNTER 2021-11-05 19:03 | Outpatient (REF) | payer OTHER, SELFPAY ==
[2021-11-05 20:22] LABS: Abs Immature Grans 0.03 10^3/uL (0.0-0.06); Absolute Basophil Count 0.03 10^3/uL (0.0-0.2); Absolute Eosinophil Count 0.14 10^3/uL (0.0-0.7); Absolute Monocyte Count 0.47 10^3/uL (0.1-0.8); Absolute Neutrophil Count 4.04 10^3/uL (1.2-6.7); Basophils % 0.4; HCT 42.4 % (36.0-46.0); Immature Grans % 0.4; Lymphocytes % 33.8; MCV 90.8 fL (80-95); MPV 11.4 fL (8.0-11.0); Monocytes % 6.6; Neutrophils % 56.8; Nucleated RBC 0 %; Platelet Count 236 10^3/uL (130-400); RBC 4.67 10^6/uL (3.93-5.22); RDW-SD 39.8 fL; WBC 7.11 10^3/uL (4.4-10.8)
[2021-11-05 21:00] LABS: ALT 29 U/L (14-59); AST 16 U/L (15-37); Albumin 4.2 g/dL (3.4-5.0); Alkaline Phosphatase 92 U/L (46-116); Anion Gap 7.1 mmol/L (3-11); BUN 18 mg/dL (7-18); Bilirubin, Total 0.3 mg/dL (0.2-1.0); CO2 29.9 mmol/L (21.0-32.0); CREATININE 0.8 mg/dL (0.55-1.02); Calcium 9.2 mg/dL (8.5-10.1); Chloride 104 mmol/L (98-107); Ferritin 283 ng/mL (8-252); Glucose 93 mg/dL (74-106); Potassium 4.7 mmol/L (3.5-5.1); Sodium 141 mmol/L (136-145); Total Protein 7.2 g/dL (6.4-8.2); Vitamin B12 473 pg/mL (193-986)
== END 2021-11-05 19:04 | disposition home or self-care (01) ==
LOC: NCHCN 19:03
PROVIDERS: PCP Physician Assistant Medical; Visit Provider Physician Assistant Medical
DX: E83.119 Hemochromatosis, unspecified (principal)
CPT/HCPCS: 80053; 82607; 82728; 85025

== ENCOUNTER → 2021-11-21 02:34 | Outpatient (CLI) | payer OTHER, SELFPAY ==
--- NOTE | 2021-11-21 | DI.MRI_ITS ---
Exam(s) MR LUMBAR SPINE WO EXAM: MR LUMBAR SPINE WO CLINICAL HISTORY: BILAT LEG PAIN M79.606. TECHNIQUE: Multiplanar multisequence MRI of the Lumbar spine was performed. COMPARISON: CR XR LUMBAR SPINE COMPLETE from 07/17/2021 FINDINGS: Conus medullaris is at normal level. There is no evidence of conus mass nor subjacent clumping of in trathecal nerve roots to suggest arachnoiditis. The distal thecal sac appears unremarkable.There is no evidence of Tarlov intrasacral cysts nor other significant findings within the sacral canal Bones:There are no fractures nor ominous osseous lesions in the lumbar vertebral bodies and visualize d sacrum. With respect to the individual levels... T12-L1: Unremarkable L1-2: This level exhibits mild disc height loss and anterior osteophytes. Modic type 2 sub endplate fatty c hanges anteriorly. Posteriorly there is no significant disc herniation or central canal stenosis. No foraminal stenosis on either side at this level. No significant facet arthropathy. L2-3: Normal disc height. No disc herniation nor central canal stenosis.No foraminal stenosis.No face t arthropathy. L3-4: Normal disc height. No disc herniation or central canal stenosis.No foraminal stenosis.No face t arthropathy. L4-5: Normal disc height and signal. No disc herniation. No canal stenosis. No foraminal stenosis. No facet arthropathy L5-S1: Normal disc height and signal. Mild central annular bulging without a dominant disc herniatio n. No central canal stenosis. There are moderate degenerative changes facet joints but no significa nt foraminal stenosis. Soft tissues: paraspinal soft tissues appear unremarkable. IMPRESSION: 1. Mild findings as described above 2. There is no evidence of significant disc herniation in the lumbosacral spine and no evidence of ce ntral nor foraminal stenosis. 3. Moderate degenerative changes are noted in both facet joints at L5-S1 level. There is no listhesi s. Facet joints at the other levels appear unremarkable DATA REPOSITORY:
== END ==
PROVIDERS: PCP Physician Assistant Medical; Visit Provider Physician Assistant Medical
DX: M79.604 Pain in right leg (principal); M79.605 Pain in left leg; M47.897 Other spondylosis, lumbosacral region
CPT/HCPCS: 72148

== ENCOUNTER 2022-01-30 11:16 | Outpatient (REF) | payer OTHER, SELFPAY ==
--- NOTE | 2022-01-30 09:58 | SKI_PTH ---
PATIENT: Rita Haider LOC: [facility] U#:[id number] AGE/SX: 66/F ROOM: RE01/30/[address]: SVEN Raymond : 1955 BED: DIS: 01/30/2022 SPEC #: [id number] RECD: 01/30/22 17:57 STATUS: FLORINA REAbhijeet #: [id number] JHONATAN: 01/30/22 09:[address]: Stefano Lawson DEPT: Surgical Specimen RECD BY: Harriet Aguilar ENTERED: 01/30/22 17:58 SP TYPE: JOVANNA CALLAHAN DR: Sophy Gomez Tissues: 1 - SKIN BIOPSY(SHAVE/PUNCH) Procedures: SKIN LEVEL 4 Comments: [id number]
== END 2022-01-30 11:17 | disposition home or self-care (01) ==
LOC: LBN 11:16
PROVIDERS: PCP Physician Assistant Medical; Visit Provider Physician Assistant
DX: L57.0 Actinic keratosis (principal)
CPT/HCPCS: 88305

== ENCOUNTER 2022-04-10 16:31 | Outpatient (REF) | payer OTHER, SELFPAY ==
[2022-04-10 15:07] LABS: HCT 41.9 % (36.0-46.0); HGB 14.5 g/dL (11.2-15.7); MCH 31.5 pg (27.0-33.0); MCHC 34.6 % (32.0-36.0); MCV 91 fL (80-95); MPV 11.6 fL (8.0-11.0); Platelet Count 228 10^3/uL (130-400); RBC 4.61 10^6/uL (3.93-5.22); RDW 12.5 % (11.7-14.6); RDW-SD 41.1 fL; WBC 7.38 10^3/uL (4.4-10.8)
[2022-04-10 15:43] LABS: ALT 27 U/L (14-59); AST 17 U/L (15-37); Albumin 4.2 g/dL (3.4-5.0); Alkaline Phosphatase 84 U/L (46-116); Anion Gap 9.1 mmol/L (3-11); BUN 13 mg/dL (7-18); Bilirubin, Total 0.3 mg/dL (0.2-1.0); CO2 25.9 mmol/L (21.0-32.0); CREATININE 0.6 mg/dL (0.55-1.02); Calcium 9.7 mg/dL (8.5-10.1); Chloride 105 mmol/L (98-107); Glucose 79 mg/dL (74-106); Potassium 4.8 mmol/L (3.5-5.1); Sodium 140 mmol/L (136-145); TSH (W/Ref FT4) 0.54 uIU/mL (0.36-3.74); Total Protein 7.2 g/dL (6.4-8.2)
== END 2022-04-10 16:32 | disposition home or self-care (01) ==
LOC: NCHCN 16:31
PROVIDERS: PCP Physician Assistant Medical; Visit Provider Physician Assistant Medical
DX: R06.02 Shortness of breath (principal); I10 Essential (primary) hypertension
CPT/HCPCS: 80053; 85027; 84443

== ENCOUNTER → 2022-04-16 01:07 | Outpatient (CLI) | payer OTHER, SELFPAY ==
--- NOTE | 2022-04-16 08:00 | DI.CTLCSR_ITS ---
Exam(s) CT CHEST LUNG CANCER SCREEN EXAM: CT CHEST LUNG CANCER SCREEN CLINICAL HISTORY: SMOKER F17.200, SCREENING FOR LUNG CANCER. TECHNIQUE: Imaging Protocol: Low Dose Technique CONTRAST MATERIAL: None COMPARISON: CR CHEST 2 VIEWS PA,LAT from 10/04/2017 FINDINGS: CHEST: LUNGS: There is a small thin-walled bulla in the right upper lobe measuring 6 millimeters. There is small amount of increased markings around this finding in the right upper lobe. There are no other s ignificant focal findings in the right lung.. In the opposite-left lung there are no significant foc al findings. There are no findings in trachea and mainstem bronchi. There is no bronchiectasis. No pleural effusions . MEDIASTINUM: There is no obvious hilar nor mediastinal adenopathy. No axillary adenopathy. CARDIAC: Heart size is normal. There is no pericardial effusion.Caliber of the thoracic aorta is wit hin normal limits. OTHER: No adrenal masses. OSSEOUS: No significant osseous lesions.No fractures.. IMPRESSION: 1. Small area of mildly increased markings in the right upper lobe surrounding a small 6 millimeter b guanakito. No other focal lung findings nor pleural effusions. 2. No obvious intrathoracic adenopathy evident. 3. Lung RADS Cat 3 - Probably Benign: Probably benign finding(s) - short term follow-up suggested; in clude nodules with a low likelihood of becoming a clinically active cancer. Recommend repeat CT scan in 6 months. Lung-RADS 1.0 CATEGORIES: Category 0 - Prior chest CT exam(s) being located for comparison. Category 1 - Annual screening in 12 months. No nodules or definitely benign nodules. Category 2 - Annual screening in 12 months. Benign appearance. Nodules with low likelihood of becomin g active cancer. Category 3 - 6-month follow-up. Probably benign. Short-term follow-up suggested. Nodules with low lik elihood of becoming active cancer. Category 4A - 3-month follow-up and CT/PET if >8 mm in size. Suspicious finding. Findings which requi re additional testing. Category 4B - Findings which require additional testing and tissue sampling. Category 4X - Category 3 or 4 nodules with additional features or imaging findings that increases the suspicion of malignancy. Modifier S- Potentially clinically significant findings (non lung cancer) RADIATION DOSE DELIVERED: 77.87mGy.cm Total DLP 1.84mGy CTDIvol DATA REPOSITORY: All CT scans at this facility are submitted to the National Radiology Data Registry (NRDR) Dose Index Registry (DIR) with the [employer] (ACR). RADIATION OPTIMIZATION: All CT scans at this facility use at least one of these dose optimization te chniques: automated exposure control; mA and/or kV adjustment per patient size (includes targeted exa ms where dose is matched to clinical indication); or iterative reconstruction.
--- NOTE | 2022-04-16 09:00 | ETT_ITS ---
APPROVED REPORT Exam: Exercise Treadmill Patient Location: Out-Patient Room/Bed: Stress Nurse: Jaylene Concepcion RN Ordering Provider:HUY CARMONA, Contact Number: [phone] BMI: 28.16 Baseline Rhythm: Sinus Rhythm Indications: SHORTNESS OF BREATH Medical History Medical History: ETOH USE, ANXIETY, HEREDITARY HEMACHROMATOSIS Cardiac Medications: NONE Allergies: No known drug allergies Cardiac Risk Factors: Smoking (quit 3 weeks prior) Previous Cardiac Procedures: NONE Pretest Chest Pain Characteristics: NONE Exercise History: Physically active Physical Disabilities: NONE Lung Sounds: Clear to auscultation Heart Sounds: Regular Stress Test Details Test: Exercise stress testing was performed using a Efra protocol. Rest Stress HR Resting HR Supine: 63 bpm Max Heart Rate (APMHR): 156 bpm Resting HR Standin bpm Target HR (85% APMHR): 132 bpm Max HR Achieved: 133 bpm % of APMHR: 85 Recovery HR: 81 bpm HR response to stress: Normal HR response to stress BP Resting BP Supine: 122/58 mmHg Resting BP Standin/76 mmHg Max BP: 160/60 mmHg Recovery BP: 120/74 mmHg BP response to stress: Normal blood pressure response to stress. ECG Resting ECG: Sinus Rhythm Ectopy: None Stress ECG: Sinus Tachycardia ST Change: Horizontal/Upsloping ST depression Lead(s): inferior leads Stage: [address] Deviation: 1 mm Arrhythmia: isolated PVC, PAC Recovery ECG: Sinus Rhythm Recovery ST Change: No significant ST segment changes noted Recovery Arrhythmia: isolated PVC Clinical Reason for Termination: Fatigue, Dyspnea Stress Symptoms: Dyspnea Exercise duration: 08 min43 sec Highest Stage Reached: Stage 3: 3.4 mph at 14% grade. Exercise capacity: 10.16 METs Osman Treadmill Score: 8.1 Rate Pressure Product: [id number] Stress ECG Conclusion 1. Resting electrocardiogram showed RSR prime in V1 and V2 2. Patient exercised on Efra protocol and completed a workload of 10.16 METS, limited by shortness o f breath 3. Normal heart rate and blood pressure response to exercise. The patient achieved 85% of predicted heart rate for age 4. There was no electrocardiographic evidence of myocardial ischemia 5. There were no significant dysrhythmias Osman Treadmill Score is 8.1 which is Low risk. Stress Test Summary STAGE Time (mins) Speed (mph) Grade (%) HR BP SYMPTOMS METS Supine 63 122/58 Standing 70 132/76 SpO2 96% 1 3 1.7 10 95 142/62 SpO2 98% 4.6 2 6 2.5 12 109 158/70 SpO2 95%, moderate SOB 7 1 min recovery 110 160/60 SpO2 96% 3 min recovery 80 152/58 6 min recovery 81 120/74
== END ==
PROVIDERS: PCP Physician Assistant Medical; Visit Provider Physician Assistant Medical
DX: R06.02 Shortness of breath (principal); F17.200 Nicotine dependence, unspecified, uncomplicated; Z12.2 Encounter for screening for malignant neoplasm of respiratory organs
CPT/HCPCS: 71271; 93017

== ENCOUNTER 2022-04-30 13:35 | Outpatient (CLI) | payer OTHER, SELFPAY ==
--- NOTE | 2022-05-01 16:57 | W.PFT ---
Date of service: 04/30/22 Time of Service: 14:45 Pulmonary Function Test Result Requesting Provider Sophy Gomez Indications: SOLOMON Interpretation Spirometry: There is no airflow limitation. There is no significant bronchodilator response. The FVC is low. Lung Volumes: Normal lung volumes Diffusion Capacity: The diffusion corrected for hemoglobin is low. Airway Pressure: Normal airways resistance. Impression There is a low FVC with normal lung volumes and a reduced diffusion. Reduced FVC could be due to being overweight, muscle weakness or ILD. The reduced diffusion raises concern for either ILD or possibly pulmonary vascular disease. Note: Can consider a chest CT to assess for ILD and/or and echo to assess for pulmonary hypertension. Clinical Correlation therefore is recommended.
== END 2022-04-30 13:36 | disposition home or self-care (01) ==
PROVIDERS: PCP Physician Assistant Medical; Visit Provider Physician Assistant Medical
DX: R06.02 Shortness of breath (principal); R94.2 Abnormal results of pulmonary function studies; R06.09 Other forms of dyspnea; R05.8 Other specified cough; Z87.891 Personal history of nicotine dependence
CPT/HCPCS: 94060; 94726; 94729

== ENCOUNTER → 2022-05-14 09:17 | Outpatient (BNVA) | payer MEDICARE, OTHER, SELFPAY | PROVIDERS: PCP Physician Assistant Medical; Referring Provider Physician Assistant Medical; Visit Provider Physical Therapy Assistant | DX: Z12.11 Encounter for screening for malignant neoplasm of colon (principal) ==

== ENCOUNTER 2022-09-09 16:52 | Outpatient (REF) | payer MEDICARE, SELFPAY ==
[2022-09-09 13:59] LABS: Iron 194 ug/dL (50-170)
[2022-09-09 14:11] LABS: Ferritin 395 ng/mL (8-252)
== END 2022-09-09 16:53 | disposition home or self-care (01) ==
LOC: NCHCN 16:52
PROVIDERS: PCP Physician Assistant Medical; Visit Provider Student in an Organized Health Care Education/Training Program
DX: E83.119 Hemochromatosis, unspecified (principal)
CPT/HCPCS: 82728; 83540

== ENCOUNTER → 2022-09-30 01:41 | Outpatient (CLI) | payer MEDICARE, SELFPAY ==
--- NOTE | 2022-09-30 07:00 | DI.CT_ITS ---
Exam(s) CT CHEST WO EXAM: CT CHEST WO CLINICAL HISTORY: f/u bullae and nodules,r91.8. TECHNIQUE: Imaging protocol: Axial computed tomography images were obtained and coronal and sagittal reformatted images were created and reviewed. COMPARISON: CT CT CHEST LUNG CANCER SCREEN from 04/16/2022 FINDINGS: Tracheobronchial tree: Patent where visualized. Pulmonary parenchyma: No consolidation or dominant measurable mass. The right upper lobe bulla is unc hanged. There are few tiny less than 3 mm nodules predominantly peripherally in the lungs. There ar e stable compared to the prior examination. No new pulmonary nodules are seen. Mediastinum and Mariel: No dominant adenopathy or fluid collection. The esophagus is unremarkable.There is a small hiatal hernia. Thyroid gland: Unremarkable. Pleura: No effusion or pneumothorax. Heart: The heart is not dilated. Mild coronary artery calcification is present. No pericardial effus ion. Aorta: Thoracic aorta non-dilated. There is mild atherosclerosis present. Upper abdomen: Unremarkable. Lymph nodes: Within normal limits. Soft tissues: Unremarkable. Bones:Within normal limits for the patient's age. IMPRESSION: 1. Stable bulla and nodules since 04/16/2022. 2. No acute pulmonary process. RADIATION DOSE DELIVERED: Total DLP Total DLP DATA REPOSITORY: All CT scans at this facility are submitted to the National Radiology Data Registry (NRDR) Dose Index Registry (DIR) with the [employer] (ACR). RADIATION OPTIMIZATION: All CT scans at this facility use at least one of these dose optimization te chniques: automated exposure control; mA and/or kV adjustment per patient size (includes targeted exa ms where dose is matched to clinical indication); or iterative reconstruction.
== END ==
PROVIDERS: PCP Physician Assistant Medical; Visit Provider Student in an Organized Health Care Education/Training Program
DX: R91.8 Other nonspecific abnormal finding of lung field (principal); K44.9 Diaphragmatic hernia without obstruction or gangrene; J43.8 Other emphysema
CPT/HCPCS: 71250

== ENCOUNTER 2022-12-30 01:24 | Outpatient (CLI) | payer MEDICARE, SELFPAY ==
--- NOTE | 2022-12-30 07:35 | DI.US_ITS ---
APPROVED REPORT EXAM: Comprehensive 2D, Doppler, and color-flow Echocardiogram Patient Location: Out-Patient Safety Administrator: Gabriela Huertas RDCS (AE) Indications: Assess for pulmonary hypertension, dyspnea Other Information Study Quality: Adequate Conclusion Normal left ventricular wall thickness and chamber size. Estimated ejection fraction is 60%. Wall m otion is normal Normal right ventricular size and systolic function Both atria are normal in size There is no structural or hemodynamically significant valvular disease Right ventricular systolic pressure could not be estimated Trivial pericardial effusion Wall motion Left Ventricle The left ventricle is normal size. The left ventricular systolic function is normal. The left ventric ular ejection fraction is within the normal range. There is normal left ventricular wall thickness. T here is normal LV segmental wall motion. There is no ventricular septal defect visualized. LVEF is 60 %. Right Ventricle The right ventricle is normal size. The right ventricular systolic function is normal. Atria The left atrium size is normal. The right atrium size is normal. The interatrial septum is intact wit h no evidence for an atrial septal defect. Aortic Valve The aortic valve is normal in structure. There is no aortic valvular stenosis. No aortic regurgitatio n is present. Mitral Valve The mitral valve is normal in structure. No evidence of mitral valve stenosis. Trace mitral regurgita tion. Tricuspid Valve The tricuspid valve is normal in structure. There is no tricuspid valve stenosis. Trace tricuspid reg urgitation. Unable to assess PA pressure. Pulmonic Valve The pulmonary valve is normal in structure. There is no pulmonic valvular stenosis. There is no pulmo jadyn valvular regurgitation. Great Vessels The aortic root is normal in size. The ascending aorta is normal in size. Aortic arch is normal in ca liber. IVC is normal in size and collapses >50% with inspiration. Pericardium There is trivial pericardial effusion. 2D Dimensions IVSD d PLAX 0.92 cm F: 0.6-1.0 LV Vol A2C d MOD 68.3 mL LVPW d PLAX 0.93 cm F: 0.6 - 1.0 LV Vol A4C d MOD 87.4 mL LVID d PLAX 4.74 cm F: 3.8 - 5.2 LA vol/ BSA A2C s A-L 15.6 mL/m2 LVDs 3.05 cm F: 2.2 - 3.5 LA vol/ BSA A4C s A-L 19.5 mL/m2 Ao Root d 3.03 cm F: 2.7 - 3.3 LA Vol/ BSA Biplane s A-L 18.8 mL/m2 RA Area A4C 10.27 cm2 LA Area A4C s MOD 14.04 cm2 RA Vol/ BSA A4C s A-L 12.2 mL/m2 LA Area A2C s MOD 11.68 cm2 Ao Asc Diam d 3.03 cm F: 2.3 - 3.1 LV EF A4C MOD 59.3 % LV EF Teichholz 64.6 % LV EF A2C MOD 60.6 % LVEF (Moore's) 60.63 % F: 54 - 74 LV EF Biplane MOD 60.6 % LV Volume 61.98 mL F: 46 - 106 SV 47.91 mL LV Volume Index 35.21 mL/m2 F: 29 - 61 SV Index 27.24 mL/m2 LV Vol Biplane MOD 79.0 mL FS 35.25 % M-Mode TAPSE 1.90 cm (M/F) >1.7 LV Diastology MV E' medial 0.079 (>0.07 m/s) E/A Ratio 1.1 LV E/e MED 9.30 (<14) MV E Vmax 0.74 (0.4-1.3 m/s) MV E' lateral 0.092 (>0.1 m/s) MV A Vmax 0.65 (0.4-1.3 m/s) LV E/e LAT 8.00 (<14) MV E/A Ratio 1.06 MV E/E' medial 9.35 MV E/E' lateral 8.02 Aortic Valve LVOT Area 3.16 cm2 AoV Area Vmax 2.62 cm2 LVOT Vmax 1.08 m/s AoV Area/ BSA (Vmax) 1.49 cm2/m2 LVOT Mean Mikal. 0.67 m/s LEANN Mean Mikal. 2.30 cm2 LVOT Peak Grad 4.7 mmHg LEANN Mean Mikal. Index 1.31 cm2/m2 LVOT Mean Grad 2.2 mmHg LVOT VTI 0.255 m LVOT Diam s 2.00 cm AoV Vmax 1.30 m/s Velocity Ratio 0.83 AoV Mean Mikal. 0.92 m/s AoV Peak Grad 6.8 mmHg LVOT SV 80.49 mL AoV Mean Grad 3.7 mmHg AoV VTI 0.315 m AoV Area VTI 2.55 cm2 AoV Area/ BSA (VTI) 1.45 cm/m2 Mitral Valve MV DT 236 (160-240 msec) MV PHT 68 msec MV Area PHT 3.21 cm2 MV VTI 0.313 m MV Area VTI 2.57 (4.0-6.0 cm2) Pulmonary Valve PV Vmax 0.83 (0.5-1.5 m/s) RVOT Peak Gr. 1.90 mmHg PV Peak Grad 2.8 mmHg RVOT Mean Gr. 0.85 mmHg PV Mean Grad 1.5 mmHg RVOT VTI 0.172 m PV VTI 0.199 m RVOT Vmax 0.69 m/s
== END 2022-12-30 01:44 ==
LOC: DI 01:25
PROVIDERS: PCP Physician Assistant Medical; Visit Provider Student in an Organized Health Care Education/Training Program
DX: R06.09 Other forms of dyspnea (principal)
CPT/HCPCS: 93306

== ENCOUNTER 2023-04-09 15:35 | Outpatient (CLI) | payer MEDICARE, SELFPAY ==
--- NOTE | 2023-04-09 11:15 | PAPFT_PTH ---
PATIENT: Rita Haider LOC: [facility]#:[id number] AGE/SX: 67/F ROOM: RE04/09/[address]: Sophy Gomez : 1955 BED: DIS: 04/09/2023 SPEC #: [id number] RECD: 04/12/23 13:18 STATUS: FLORINA REAbhijeet #: [id number] JHONATAN: 04/09/23 11:[address]: Sophy Gomez DEPT: [facility] Cytology RECD BY: Harriet Aguilar Tissues: 1 - CX/ENDOCX FOR PAP SMEARS Procedures: PAP THIN PREP/UVM Screening HPV DNA PROBE Comments: [id number]
== END 2023-04-09 15:36 | disposition home or self-care (01) ==
LOC: NCHCN 15:39
PROVIDERS: PCP Physician Assistant Medical; Visit Provider Physician Assistant Medical
DX: N76.0 Acute vaginitis (principal); Z11.51 Encounter for screening for human papillomavirus (HPV); Z01.419 Encounter for gynecological examination (general) (routine) without abnormal findings
CPT/HCPCS: 88142; 87480; 87510; 87624; 87660

== ENCOUNTER → 2023-09-27 02:51 | Outpatient (CLI) | payer MEDICARE, SELFPAY ==
--- NOTE | 2023-09-27 13:20 | DI.MAMMO_ITS ---
Exam(s) MAMMO SCREENING EXAM: MAMMO SCREENING CLINICAL HISTORY: screening, Z12.39 TECHNIQUE: Mammograms were interpreted according to the usual protocol including computer analysis w [employer] CAD system, tomosynthesis and C-view imaging. COMPARISON: 2013 through 2020 FINDINGS: The breasts are composed of scattered fibroglandular densities, Breast Density category B. No suspicious masses or suspicious microcalcifications are seen. No skin thickening or abnormal axillary lymph nodes are seen. There has been no significant change from prior exams. IMPRESSION: BI-RADS Category 1, Negative mammogram Yearly screening mammography is recommended. Breast Density - Category B, scattered fibroglandular densities. A negative radiographic report should not delay biopsy if a dominant or clinically suspicious mass is present. Up to ten percent of cancers are not identified on mammography. A negative report may reinforce clinical impression. Adenosis and dense breasts may obscure an underlying neoplasm. False positive reports average 6 to 10%. Patient will receive a letter notifying them of these results.
== END ==
PROVIDERS: PCP Physician Assistant Medical; Visit Provider Obstetrics & Gynecology
DX: Z12.31 Encounter for screening mammogram for malignant neoplasm of breast (principal); R92.323 Mammographic fibroglandular density, bilateral breasts
CPT/HCPCS: 77063; 77067

== ENCOUNTER → 2023-10-07 09:36 | Outpatient (BNVA) | payer MEDICARE, SELFPAY | PROVIDERS: PCP Physician Assistant Medical; Referring Provider Physician Assistant Medical; Visit Provider Physician Assistant Surgical | DX: R06.00 Dyspnea, unspecified (principal); E83.119 Hemochromatosis, unspecified; Z87.891 Personal history of nicotine dependence; R91.1 Solitary pulmonary nodule | CPT/HCPCS: 99214 ==

== ENCOUNTER → 2023-10-11 03:12 | Outpatient (CLI) | payer MEDICARE, SELFPAY ==
--- NOTE | 2023-10-11 15:18 | DI.CTLCSR_ITS ---
Exam(s) CT CHEST LUNG CANCER SCREEN EXAM: CT CHEST LUNG CANCER SCREEN CLINICAL HISTORY: Screening for lung cancer,former smoker, z87.891. TECHNIQUE: Imaging Protocol: Low Dose Technique CONTRAST MATERIAL: None COMPARISON: CT CT CHEST WO from 09/30/2022 FINDINGS: CHEST: LUNGS: There is a small 2-3 millimeter nodule in the posterior basal segment of the right lower lobe, not previously present. No other significant focal right lung findings. There are no significant n odules in the left lung. Mild benign-appearing subpleural increased markings are noted in the anteri or basal segment of the left lower lobe which were not previously present.. There are no confluent i nfiltrates. No pleural effusions. MEDIASTINUM: There is no obvious hilar nor mediastinal adenopathy. CARDIAC: Heart size is normal. There is no pericardial effusion.Caliber of the thoracic aorta is wit hin normal limits. OTHER: OSSEOUS: No significant osseous lesions.. IMPRESSION: 1. Small 2-3 millimeter nodule in the right lower lobe posterior basal segment, not previously presen t. No other significant pulmonary nodules. Recommend follow-up CT scan in 6 months 2. No on fluid infiltrates, pleural effusions, nor intrathoracic adenopathy. 3. Lung RADS Cat 3 - Probably Benign: Probably benign finding(s) - short term follow-up suggested; in clude nodules with a low likelihood of becoming a clinically active cancer. Lung-RADS 1.0 CATEGORIES: Category 0 - Prior chest CT exam(s) being located for comparison. Category 1 - Annual screening in 12 months. No nodules or definitely benign nodules. Category 2 - Annual screening in 12 months. Benign appearance. Nodules with low likelihood of becomin g active cancer. Category 3 - 6-month follow-up. Probably benign. Short-term follow-up suggested. Nodules with low lik elihood of becoming active cancer. Category 4A - 3-month follow-up and CT/PET if >8 mm in size. Suspicious finding. Findings which requi re additional testing. Category 4B - Findings which require additional testing and tissue sampling. Category 4X - Category 3 or 4 nodules with additional features or imaging findings that increases the suspicion of malignancy. Modifier S- Potentially clinically significant findings (non lung cancer) RADIATION DOSE DELIVERED: Total DLP DATA REPOSITORY: All CT scans at this facility are submitted to the National Radiology Data Registry (NRDR) Dose Index Registry (DIR) with the [employer] (ACR). RADIATION OPTIMIZATION: All CT scans at this facility use at least one of these dose optimization te chniques: automated exposure control; mA and/or kV adjustment per patient size (includes targeted exa ms where dose is matched to clinical indication); or iterative reconstruction.
== END ==
PROVIDERS: PCP Physician Assistant Medical; Visit Provider Student in an Organized Health Care Education/Training Program
DX: Z87.891 Personal history of nicotine dependence (principal); Z12.2 Encounter for screening for malignant neoplasm of respiratory organs; R91.1 Solitary pulmonary nodule
CPT/HCPCS: 71271

== ENCOUNTER 2023-12-28 14:44 | Outpatient (REF) | payer MEDICARE, SELFPAY ==
[2023-12-28 19:19] LABS: Abs Immature Grans 0.02 10^3/uL (0.0-0.06); Absolute Basophil Count 0.06 10^3/uL (0.0-0.2); Absolute Eosinophil Count 0.14 10^3/uL (0.0-0.7); Absolute Lymphocyte Count 2.29 10^3/uL (1.2-3.4); Absolute Monocyte Count 0.54 10^3/uL (0.1-0.8); Absolute Neutrophil Count 3.19 10^3/uL (1.2-6.7); Eosinophils % 2.2; HGB 14.3 g/dL (11.2-15.7); Immature Grans % 0.3; Lymphocytes % 36.7; MCH 31.5 pg (27.0-33.0); MCHC 34.9 % (32.0-36.0); MCV 90 fL (80-95); Monocytes % 8.7; Neutrophils % 51.1; Platelet Count 245 10^3/uL (130-400); RBC 4.54 10^6/uL (3.93-5.22); RDW 12.1 % (11.7-14.6); WBC 6.24 10^3/uL (4.4-10.8)
[2023-12-28 19:43] LABS: ALT 32 U/L (14-59); AST 17 U/L (15-37); Albumin 4.2 g/dL (3.4-5.0); Alkaline Phosphatase 90 U/L (46-116); Anion Gap 9.1 mmol/L (3-11); BUN 20 mg/dL (7-18); CO2 27.9 mmol/L (21.0-32.0); CREATININE 0.8 mg/dL (0.55-1.02); Calcium 9.6 mg/dL (8.5-10.1); Chloride 100 mmol/L (98-107); Estimated GFR 81.21 (mL/min/1.73m2); Ferritin 449 ng/mL (8-252); Glucose 107 mg/dL (74-106); Potassium 4.8 mmol/L (3.5-5.1); Sodium 137 mmol/L (136-145); TSH (W/Ref FT4) 0.78 uIU/mL (0.36-3.74); Total Protein 7.6 g/dL (6.4-8.2)
[2023-12-28 20:08] LABS: Iron 143 ug/dL (50-170); Total Iron Binding Capacity 247 ug/dL (250-450); Transferrin Sat 58 % (15-50)
[2023-12-28 20:22] LABS: Bilirubin, Total 0.4 mg/dL (0.2-1.0)
== END 2023-12-28 14:45 | disposition home or self-care (01) ==
LOC: NCHCN 14:44
PROVIDERS: PCP Physician Assistant Medical; Visit Provider Nurse Practitioner Family
DX: K21.9 Gastro-esophageal reflux disease without esophagitis (principal); R06.09 Other forms of dyspnea; F51.04 Psychophysiologic insomnia; F41.8 Other specified anxiety disorders; E83.119 Hemochromatosis, unspecified
CPT/HCPCS: 80053; 82728; 83540; 83550; 84443; 85025

== ENCOUNTER 2024-01-25 04:28 | Outpatient (RCR) | payer MEDICARE, SELFPAY ==
[2024-01-25 12:01] LABS: HCT 40.4 % (36.0-46.0); HGB 13.7 g/dL (11.2-15.7); MCH 31.4 pg (27.0-33.0); MCHC 33.9 % (32.0-36.0); MCV 93 fL (80-95); MPV 10.4 fL (8.0-11.0); Platelet Count 226 10^3/uL (130-400); RBC 4.36 10^6/uL (3.93-5.22); RDW 12.5 % (11.7-14.6); RDW-SD 42.8 fL; WBC 5.93 10^3/uL (4.4-10.8)
[2024-01-25 12:30] LABS: Ferritin 293 ng/mL (8-252)
[2024-01-25] MEDS: Normal Saline Flush 10 ML SYR IVP (13:42)
== END 2024-02-06 23:59 | disposition home or self-care (01) ==
LOC: INF 04:28
PROVIDERS: PCP Physician Assistant Medical; Visit Provider Internal Medicine Hematology & Oncology
DX: E83.118 Other hemochromatosis (principal)
CPT/HCPCS: 36415; 85027; 99195; 82728

== ENCOUNTER 2024-03-07 05:29 | Outpatient (RCR) | payer MEDICARE, SELFPAY ==
[2024-02-08 11:47] LABS: HCT 36.1 % (36.0-46.0); HGB 12.3 g/dL (11.2-15.7); MCH 31.7 pg (27.0-33.0); MCHC 34.1 % (32.0-36.0); MCV 93 fL (80-95); MPV 9.9 fL (8.0-11.0); Platelet Count 213 10^3/uL (130-400); RBC 3.88 10^6/uL (3.93-5.22); RDW 12.8 % (11.7-14.6); RDW-SD 43.9 fL; WBC 4.81 10^3/uL (4.4-10.8)
[2024-02-08] MEDS: Normal Saline Flush 10 ML SYR IVP (12:10)
[2024-02-08 12:15] LABS: Ferritin 239 ng/mL (8-252)
[2024-02-15 12:02] LABS: HCT 37.1 % (36.0-46.0); HGB 12.7 g/dL (11.2-15.7); MCH 32.2 pg (27.0-33.0); MCHC 34.2 % (32.0-36.0); MCV 94 fL (80-95); Platelet Count 221 10^3/uL (130-400); RBC 3.94 10^6/uL (3.93-5.22); RDW 13.2 % (11.7-14.6); RDW-SD 44.8 fL; WBC 6.56 10^3/uL (4.4-10.8)
[2024-02-15 12:32] LABS: Ferritin 246 ng/mL (8-252)
[2024-02-15] MEDS: Normal Saline Flush 10 ML SYR IVP (13:00)
[2024-02-22 11:39] LABS: HCT 33.7 % (36.0-46.0); HGB 11.8 g/dL (11.2-15.7); MCH 32.7 pg (27.0-33.0); MCV 93 fL (80-95); MPV 10.2 fL (8.0-11.0); Platelet Count 207 10^3/uL (130-400); RBC 3.61 10^6/uL (3.93-5.22); RDW-SD 44.2 fL; WBC 4.94 10^3/uL (4.4-10.8)
[2024-02-22 12:07] LABS: Ferritin 229 ng/mL (8-252)
[2024-02-29 12:14] LABS: HCT 37.6 % (36.0-46.0); HGB 12.8 g/dL (11.2-15.7); MCH 31.5 pg (27.0-33.0); MCV 93 fL (80-95); MPV 10.2 fL (8.0-11.0); Platelet Count 236 10^3/uL (130-400); RBC 4.06 10^6/uL (3.93-5.22); RDW 12.6 % (11.7-14.6); RDW-SD 43.2 fL; WBC 5.24 10^3/uL (4.4-10.8)
[2024-03-07 11:50] LABS: HCT 34.9 % (36.0-46.0); HGB 11.8 g/dL (11.2-15.7); MCHC 33.8 % (32.0-36.0); MCV 95 fL (80-95); Platelet Count 252 10^3/uL (130-400); RBC 3.69 10^6/uL (3.93-5.22); RDW 13.1 % (11.7-14.6); RDW-SD 44.8 fL; WBC 6.09 10^3/uL (4.4-10.8)
== END 2024-03-07 23:59 | disposition home or self-care (01) ==
LOC: INF 05:29
PROVIDERS: PCP Physician Assistant Medical; Visit Provider Internal Medicine Hematology & Oncology
DX: E83.110 Hereditary hemochromatosis (principal)
CPT/HCPCS: 36415; 85027; 99195; 82728

== ENCOUNTER 2024-03-28 04:48 | Outpatient (RCR) | payer MEDICARE, SELFPAY ==
[2024-03-21 12:04] LABS: HCT 37.3 % (36.0-46.0); HGB 12.9 g/dL (11.2-15.7); MCH 32.3 pg (27.0-33.0); MCHC 34.6 % (32.0-36.0); MCV 94 fL (80-95); MPV 10.3 fL (8.0-11.0); Platelet Count 212 10^3/uL (130-400); RBC 3.99 10^6/uL (3.93-5.22); RDW 12.3 % (11.7-14.6); RDW-SD 42.3 fL; WBC 5.09 10^3/uL (4.4-10.8)
[2024-03-21 12:32] LABS: Ferritin 201 ng/mL (8-252)
== END 2024-04-07 23:59 | disposition home or self-care (01) ==
LOC: INF 04:48
PROVIDERS: PCP Physician Assistant Medical; Visit Provider Internal Medicine Hematology & Oncology
DX: E83.118 Other hemochromatosis (principal)
CPT/HCPCS: 36415; 85027; 99195; 82728

== ENCOUNTER → 2024-04-12 03:57 | Outpatient (CLI) | payer MEDICARE, SELFPAY ==
--- NOTE | 2024-04-12 07:30 | DI.CT_ITS ---
Exam(s) CT CHEST WO EXAM: CT CHEST WO CLINICAL HISTORY: new nodule follow up, pulmonary nodule, R91.1. TECHNIQUE: Imaging protocol: Axial computed tomography images were obtained and coronal and sagittal reformatted images were created and reviewed. COMPARISON: CT CT CHEST LUNG CANCER SCREEN from 10/11/2023 FINDINGS: Tracheobronchial tree: Patent where visualized. Pulmonary parenchyma: The nodule previously seen in the posterior basal segment of the right lower lo be is no longer visualized. This may have reflected an infectious or inflammatory nodule. There is a stable perifissural nodule associated with the right minor fissure. There is a stable 2 mm nodule in the periphery of the right upper lobe (series 3, image 177). No new pulmonary nodules are present . No focal consolidating infiltrates are seen. No architectural distortion. Mediastinum and Mariel: No dominant adenopathy or fluid collection. The esophagus is unremarkable. Thyroid gland: Unremarkable. Pleura: No effusion or pneumothorax. Heart: The heart is not dilated. Mild coronary artery calcification is present. No pericardial effus ion. Aorta: Thoracic aorta non-dilated. Atherosclerotic calcification is present. Upper abdomen: Unremarkable. Lymph nodes: Within normal limits. Soft tissues: Unremarkable. Bones:Within normal limits for the patient's age. IMPRESSION: 1. Resolution of the right lower lobe pulmonary nodule. This may represent is infectious/inflammator y nodule. 2. No new pulmonary nodules. 3. No acute pulmonary process. RADIATION DOSE DELIVERED: 594.33mGy.cm Total DLP 594.33mGy.cm Total DLP DATA REPOSITORY: All CT scans at this facility are submitted to the National Radiology Data Registry (NRDR) Dose Index Registry (DIR) with the [employer] (ACR). RADIATION OPTIMIZATION: All CT scans at this facility use at least one of these dose optimization te chniques: automated exposure control; mA and/or kV adjustment per patient size (includes targeted exa ms where dose is matched to clinical indication); or iterative reconstruction.
== END ==
PROVIDERS: PCP Physician Assistant Medical; Visit Provider Physician Assistant Surgical
DX: R91.1 Solitary pulmonary nodule (principal)
CPT/HCPCS: 71250

== ENCOUNTER 2024-04-14 05:26 | Outpatient (CLI) | payer MEDICARE, SELFPAY ==
[2024-04-14] MEDS: Levalbuterol HFA 15 GM INH 4 PUFF IH (12:12)
[2024-04-14] MEDS: Inhaler, Assist Device 1 EACH MC (12:12)
--- NOTE | 2024-04-17 10:35 | W.PFT ---
Date of service: 04/14/24 Time of Service: 10:02 Pulmonary Function Test Result Indications: COPD Interpretation Spirometry: There is no airflow limitation. There is a significant bronchodilator response. Lung Volumes: Normal lung volumes Diffusion Capacity: Normal diffusion Airway Pressure: Increased airways resistance Impression Normal pulmonary function with a bronchodilator response and increased airways resistance which may represent asthma in the correct clinical setting. Clinical Correlation therefore is recommended.
== END 2024-04-14 05:27 | disposition home or self-care (01) ==
LOC: RT 05:26
PROVIDERS: PCP Physician Assistant Medical; Visit Provider Nurse Practitioner Family
DX: J44.9 Chronic obstructive pulmonary disease, unspecified (principal)
CPT/HCPCS: 94060; 94726; 94729

== ENCOUNTER 2024-04-18 04:55 | Outpatient (RCR) | payer MEDICARE, SELFPAY ==
[2024-04-18 11:39] LABS: HCT 39.7 % (36.0-46.0); MCH 32.3 pg (27.0-33.0); MCHC 35.3 % (32.0-36.0); MCV 92 fL (80-95); MPV 10.6 fL (8.0-11.0); Platelet Count 201 10^3/uL (130-400); RBC 4.34 10^6/uL (3.93-5.22); RDW 12.2 % (11.7-14.6); WBC 6.86 10^3/uL (4.4-10.8)
[2024-04-18 12:06] LABS: Ferritin 253 ng/mL (8-252)
== END 2024-05-07 23:59 | disposition home or self-care (01) ==
LOC: INF 04:55
PROVIDERS: PCP Physician Assistant Medical; Visit Provider Internal Medicine Hematology & Oncology
DX: E83.118 Other hemochromatosis (principal)
CPT/HCPCS: 36415; 85027; 82728

== ENCOUNTER 2024-05-16 03:19 | Outpatient (RCR) | payer MEDICARE, SELFPAY ==
[2024-05-16 12:38] LABS: HCT 38.7 % (36.0-46.0); HGB 13.4 g/dL (11.2-15.7); MCH 31.7 pg (27.0-33.0); MCHC 34.6 % (32.0-36.0); MCV 92 fL (80-95); MPV 10.4 fL (8.0-11.0); Platelet Count 193 10^3/uL (130-400); RBC 4.23 10^6/uL (3.93-5.22); RDW 12.5 % (11.7-14.6); RDW-SD 41.6 fL; WBC 7.65 10^3/uL (4.4-10.8)
[2024-05-16 13:08] LABS: Ferritin 248 ng/mL (8-252)
== END 2024-06-07 23:59 | disposition home or self-care (01) ==
LOC: INF 03:19
PROVIDERS: PCP Physician Assistant Medical; Visit Provider Internal Medicine Hematology & Oncology
DX: E83.118 Other hemochromatosis (principal)
CPT/HCPCS: 36415; 85027; 99195; 82728

== ENCOUNTER 2024-06-20 02:18 | Outpatient (RCR) | payer MEDICARE, SELFPAY ==
[2024-06-20 12:04] LABS: HCT 38.6 % (36.0-46.0); HGB 13.2 g/dL (11.2-15.7); MCH 31.7 pg (27.0-33.0); MCHC 34.2 % (32.0-36.0); MCV 93 fL (80-95); MPV 10.5 fL (8.0-11.0); Platelet Count 216 10^3/uL (130-400); RBC 4.16 10^6/uL (3.93-5.22); RDW 12.9 % (11.7-14.6); WBC 5.76 10^3/uL (4.4-10.8)
[2024-06-20 12:35] LABS: Ferritin 237 ng/mL (8-252)
== END 2024-07-08 23:59 | disposition home or self-care (01) ==
LOC: INF 02:18
PROVIDERS: PCP Physician Assistant Medical; Visit Provider Internal Medicine Hematology & Oncology
DX: E83.118 Other hemochromatosis (principal)
CPT/HCPCS: 36415; 85027; 99195; 82728

== ENCOUNTER 2024-07-17 01:53 | Outpatient (CLI) | payer MEDICARE, SELFPAY ==
[2024-07-17 09:58] LABS: Abs Immature Grans 0.03 10^3/uL (0.0-0.06); Absolute Basophil Count 0.03 10^3/uL (0.0-0.2); Absolute Eosinophil Count 0.14 10^3/uL (0.0-0.7); Absolute Lymphocyte Count 1.61 10^3/uL (1.2-3.4); Absolute Monocyte Count 0.51 10^3/uL (0.1-0.8); Absolute Neutrophil Count 4.19 10^3/uL (1.2-6.7); Basophils % 0.5 %; Eosinophils % 2.2 %; HCT 37.2 % (36.0-46.0); HGB 12.7 g/dL (11.2-15.7); Immature Grans % 0.5 %; Lymphocytes % 24.7 %; MCH 32.1 pg (27.0-33.0); MCHC 34.1 % (32.0-36.0); MCV 94 fL (80-95); MPV 10.7 fL (8.0-11.0); Monocytes % 7.8 %; Neutrophils % 64.3 %; Platelet Count 185 10^3/uL (130-400); RBC 3.96 10^6/uL (3.93-5.22); RDW 13.2 % (11.7-14.6); RDW-SD 45.1 fL; WBC 6.51 10^3/uL (4.4-10.8)
[2024-07-17 10:20] LABS: Ferritin 161 ng/mL (8-252)
== END 2024-07-17 01:54 | disposition home or self-care (01) ==
LOC: LBO 01:53
PROVIDERS: PCP Physician Assistant Medical; Visit Provider Internal Medicine Hematology & Oncology
DX: E83.110 Hereditary hemochromatosis (principal)
CPT/HCPCS: 82728; 85025

== ENCOUNTER 2024-07-18 01:41 | Outpatient (RCR) | payer MEDICARE, SELFPAY | END 2024-08-07 23:59 | disposition home or self-care (01) | LOC: INF 01:41 | PROVIDERS: PCP Physician Assistant Medical; Visit Provider Internal Medicine Hematology & Oncology | DX: E83.110 Hereditary hemochromatosis (principal) | CPT/HCPCS: 99195 ==

== ENCOUNTER 2024-08-14 02:54 | Outpatient (CLI) | payer MEDICARE, SELFPAY ==
[2024-08-14 10:35] LABS: Abs Immature Grans 0.03 10^3/uL (0.0-0.06); Absolute Basophil Count 0.03 10^3/uL (0.0-0.2); Absolute Lymphocyte Count 1.83 10^3/uL (1.2-3.4); Absolute Neutrophil Count 2.91 10^3/uL (1.2-6.7); Basophils % 0.5 %; Eosinophils % 3.6 %; HCT 39.7 % (36.0-46.0); HGB 13.3 g/dL (11.2-15.7); Immature Grans % 0.5 %; Lymphocytes % 33.3 %; MCH 32.5 pg (27.0-33.0); MCHC 33.5 % (32.0-36.0); MCV 97 fL (80-95); MPV 10.3 fL (8.0-11.0); Monocytes % 9.1 %; Platelet Count 186 10^3/uL (130-400); RBC 4.09 10^6/uL (3.93-5.22); RDW 12.9 % (11.7-14.6); RDW-SD 45.5 fL
[2024-08-14 11:03] LABS: Ferritin 136 ng/mL (8-252)
== END 2024-08-14 02:55 | disposition home or self-care (01) ==
LOC: LBO 02:54
PROVIDERS: PCP Physician Assistant Medical; Visit Provider Internal Medicine Hematology & Oncology
DX: E83.110 Hereditary hemochromatosis (principal)
CPT/HCPCS: 36415; 82728; 85025

== ENCOUNTER 2024-08-15 02:50 | Outpatient (RCR) | payer MEDICARE, SELFPAY | END 2024-09-07 23:59 | disposition home or self-care (01) | LOC: INF 02:50 | PROVIDERS: PCP Physician Assistant Medical; Visit Provider Internal Medicine Hematology & Oncology | DX: E83.110 Hereditary hemochromatosis (principal) | CPT/HCPCS: 99195 ==

== ENCOUNTER 2024-09-18 03:21 | Outpatient (CLI) | payer MEDICARE, SELFPAY ==
[2024-09-18 10:30] LABS: Abs Immature Grans 0.04 10^3/uL (0.0-0.06); Absolute Basophil Count 0.04 10^3/uL (0.0-0.2); Absolute Eosinophil Count 0.18 10^3/uL (0.0-0.7); Absolute Lymphocyte Count 2.09 10^3/uL (1.2-3.4); Absolute Monocyte Count 0.51 10^3/uL (0.1-0.8); Absolute Neutrophil Count 2.88 10^3/uL (1.2-6.7); Basophils % 0.7 %; Eosinophils % 3.1 %; HCT 39.3 % (36.0-46.0); HGB 12.9 g/dL (11.2-15.7); Immature Grans % 0.7 %; Lymphocytes % 36.4 %; MCH 31.9 pg (27.0-33.0); MCHC 32.8 % (32.0-36.0); MCV 97 fL (80-95); MPV 10.4 fL (8.0-11.0); Monocytes % 8.9 %; Neutrophils % 50.2 %; Platelet Count 185 10^3/uL (130-400); RBC 4.05 10^6/uL (3.93-5.22); RDW 13.1 % (11.7-14.6); RDW-SD 46.9 fL; WBC 5.74 10^3/uL (4.4-10.8)
[2024-09-18 11:19] LABS: Ferritin 111 ng/mL (8-252)
== END 2024-09-18 03:22 | disposition home or self-care (01) ==
LOC: LBO 03:21
PROVIDERS: PCP Physician Assistant Medical; Visit Provider Internal Medicine Hematology & Oncology
DX: E83.110 Hereditary hemochromatosis (principal)
CPT/HCPCS: 36415; 82728; 85025

== ENCOUNTER → 2024-11-14 13:35 | Outpatient (BNVA) | payer MEDICARE, SELFPAY | PROVIDERS: PCP Physician Assistant Medical; Referring Provider Physician Assistant Medical; Visit Provider Physician Assistant Surgical | DX: R06.00 Dyspnea, unspecified (principal); R91.1 Solitary pulmonary nodule; E83.119 Hemochromatosis, unspecified; Z87.891 Personal history of nicotine dependence | CPT/HCPCS: 99214 ==

== ENCOUNTER 2024-12-21 02:41 | Outpatient (CLI) | payer MEDICARE, SELFPAY ==
--- NOTE | 2024-12-21 | DI.DEXA_ITS ---
Exam(s) XR DEXA BONE DENSITY W/WO ROWAN EXAM: XR DEXA BONE DENSITY W/WO ROWAN CLINICAL HISTORY: Asymptomatic menopausal state, Z78.0 TECHNIQUE: Routine DEXA evaluation of the lumbar spine, hip, or forearm. COMPARISON: No exams were available for comparison FINDINGS: Performed on a Hologic unit. Lateral image: No compression fracture evident. Lumbar Spine total T-score: -1.2 Hip total T-score:-1.1 Independent reading at the level of the femoral neck yields T-score of -1.3 Forearm total T-score: -1.7 IMPRESSION: Bone mineral density measures in the osteopenia range. Fracture risk is moderate. Note: Any spine fracture indicates 5x risk for subsequent spine fracture and 2x risk for subsequent h ip fracture. World Health Organization criteria for BMD interpretation classify patients: Normal...... T- Score at or above -1.0 Osteopenic... T- Score between -1.0 and -2.5 Osteoporosis... T-Score at or below -2.5
== END 2024-12-21 03:01 ==
LOC: DI 02:41
PROVIDERS: PCP Physician Assistant Medical; Visit Provider Nurse Practitioner Family
DX: Z78.0 Asymptomatic menopausal state (principal); Z13.820 Encounter for screening for osteoporosis; M85.89 Other specified disorders of bone density and structure, multiple sites
CPT/HCPCS: 77080

== ENCOUNTER 2025-03-07 20:03 | Outpatient (REF) | payer MEDICARE, SELFPAY ==
[2025-03-07 20:45] LABS: Abs Immature Grans 0.02 10^3/uL (0.0-0.06); Absolute Basophil Count 0.05 10^3/uL (0.0-0.2); Absolute Eosinophil Count 0.15 10^3/uL (0.0-0.7); Absolute Lymphocyte Count 2.05 10^3/uL (1.2-3.4); Absolute Monocyte Count 0.56 10^3/uL (0.1-0.8); Absolute Neutrophil Count 3.96 10^3/uL (1.2-6.7); Basophils % 0.7 %; Eosinophils % 2.2 %; HCT 39.2 % (36.0-46.0); HGB 13.4 g/dL (11.2-15.7); Immature Grans % 0.3 %; Lymphocytes % 30.2 %; MCH 32.9 pg (27.0-33.0); MCHC 34.2 % (32.0-36.0); MCV 96 fL (80-95); MPV 11.2 fL (8.0-11.0); Monocytes % 8.2 %; Neutrophils % 58.4 %; Platelet Count 211 10^3/uL (130-400); RBC 4.07 10^6/uL (3.93-5.22); RDW 12.6 % (11.7-14.6); RDW-SD 45.1 fL; WBC 6.79 10^3/uL (4.4-10.8)
[2025-03-07 21:01] LABS: Iron 191 ug/dL (50-170); Total Iron Binding Capacity 220 ug/dL (250-450); Transferrin Sat 87 % (15-50)
[2025-03-07 21:29] LABS: Calculated LDL 137 mg/dL (<100); Cholesterol 245 mg/dL (<200); Ferritin 218 ng/mL (8-252); HDL Cholesterol 85 mg/dL (>or=50); TSH 0.56 uIU/mL (0.36-3.74); Triglyceride 116 mg/dL (<150); Vitamin B12 1287 pg/mL (193-986)
[2025-03-07 21:32] LABS: Folate > 20.0 ng/mL (8.6-20.0)
[2025-03-07 21:51] LABS: FREE T4 0.74 ng/dL (0.76-1.46)
== END 2025-03-07 20:04 | disposition home or self-care (01) ==
LOC: NCHCN 20:03
PROVIDERS: PCP Physician Assistant Medical; Visit Provider Nurse Practitioner Family
DX: E78.5 Hyperlipidemia, unspecified (principal); E83.119 Hemochromatosis, unspecified; R53.83 Other fatigue
CPT/HCPCS: 80061; 82607; 82728; 82746; 83540; 83550; 84439; 84443; 85025

== ENCOUNTER 2025-06-06 15:49 | Outpatient (REF) | payer MEDICARE, SELFPAY ==
[2025-06-06 17:08] LABS: ALT 31 U/L (14-59); AST 19 U/L (15-37); Albumin 4.2 g/dL (3.4-5.0); Alkaline Phosphatase 80 U/L (46-116); Anion Gap 8.5 mmol/L (3-11); BUN 16 mg/dL (7-18); Bilirubin, Total 0.4 mg/dL (0.2-1.0); CO2 27.5 mmol/L (21.0-32.0); Calcium 9.1 mg/dL (8.5-10.1); Chloride 102 mmol/L (98-107); Estimated GFR 94.15 (mL/min/1.73m2); Glucose 108 mg/dL (74-106); Potassium 4.3 mmol/L (3.5-5.1); Sodium 138 mmol/L (136-145); Total Protein 7.3 g/dL (6.4-8.2)
== END 2025-06-06 15:50 | disposition home or self-care (01) ==
LOC: NCHCN 15:49
PROVIDERS: PCP Physician Assistant Medical; Visit Provider Physician Assistant
DX: E83.110 Hereditary hemochromatosis (principal)
CPT/HCPCS: 80053

== ENCOUNTER 2025-09-13 17:34 | Outpatient (REF) | payer MEDICARE, SELFPAY ==
[2025-09-13 19:22] LABS: HCT 40.2 % (36.0-46.0); HGB 13.3 g/dL (11.2-15.7); MCH 32.4 pg (27.0-33.0); MCHC 33.1 % (32.0-36.0); MCV 98 fL (80-95); MPV 10.3 fL (8.0-11.0); Platelet Count 213 10^3/uL (130-400); RBC 4.11 10^6/uL (3.93-5.22); RDW 12.8 % (11.7-14.6); RDW-SD 46.3 fL; WBC 8.01 10^3/uL (4.4-10.8)
[2025-09-13 19:40] LABS: Iron 196 ug/dL (50-170); Total Iron Binding Capacity 201 ug/dL (250-450)
[2025-09-13 19:53] LABS: ALT 44 U/L (14-59); AST 21 U/L (15-37); Albumin 4.5 g/dL (3.4-5.0); Alkaline Phosphatase 80 U/L (46-116); Anion Gap 10.0 mmol/L (3-11); BUN 18 mg/dL (7-18); Bilirubin, Total 0.7 mg/dL (0.2-1.0); CO2 32.0 mmol/L (21.0-32.0); Calcium 9.5 mg/dL (8.5-10.1); Chloride 103 mmol/L (98-107); Cholesterol 205 mg/dL (<200); Ferritin 369 ng/mL (8-252); Glucose 99 mg/dL (74-106); HDL Cholesterol 75 mg/dL (>or=50); Potassium 3.8 mmol/L (3.5-5.1); Sodium 145 mmol/L (136-145); Total Protein 7.7 g/dL (6.4-8.2)
== END 2025-09-13 17:35 | disposition home or self-care (01) ==
LOC: NCHCN 17:34
PROVIDERS: PCP Physician Assistant Medical; Visit Provider Physician Assistant
DX: E83.119 Hemochromatosis, unspecified (principal); E78.5 Hyperlipidemia, unspecified
CPT/HCPCS: 80053; 80061; 85027; 82728; 83540; 83550

== ENCOUNTER → 2025-10-01 02:19 | Outpatient (CLI) | payer MEDICARE, SELFPAY ==
--- NOTE | 2025-10-01 | DI.CTLCSR_ITS ---
Exam(s) CT CHEST LUNG CANCER SCREEN EXAM: CT CHEST LUNG CANCER SCREEN CLINICAL HISTORY: Z87.891 Personal history nicotine dependence, former smoker TECHNIQUE: Imaging Protocol: Axial computed tomography images with coronal and sagittal reformatted images were created and reviewed. Lung Computer Aided Detection (CAD) was utilized. COMPARISON: CT CT CHEST LUNG CANCER SCREEN from 10/11/[address] CHEST WO from 04/12/2024 FINDINGS: Tracheobronchial tree: Patent where visualized. No bronchiectasis. Pulmonary parenchyma: No consolidation or dominant measurable mass. No architectural distortion. There is dependent atelectasis in the lung bases. Lung Nodules: There is no change in appearance of the peripheral nodule in the right upper lobe. There are no new pulmonary nodules. Mediastinum and Mariel: No dominant adenopathy or fluid collection. The esophagus is unremarkable. Thyroid gland: Unremarkable. Lymph nodes: Unremarkable. Pleura: No effusion or pneumothorax. Heart: The heart is not dilated. Coronary artery calcifications are present. No pericardial effusion. Aorta: Thoracic aorta non-dilated.Atherosclerotic calcification is present. Upper abdomen: Unremarkable. Soft Tissues: Unremarkable. Bones: Within normal limits. IMPRESSION: Stable right upper lobe pulmonary nodule. There are no new pulmonary nodules. Lung RADS Cat 2 - Benign Appearance / Behavior: Nodules with a very low likelihood of becoming a clinically active cancer due to size or lack of growth Lung-RADS 1.0 CATEGORIES: Category 0 - Prior chest CT exam(s) being located for comparison. Category 1 - Annual screening in 12 months. No nodules or definitely benign nodules. Category 2 - Annual screening in 12 months. Benign appearance. Nodules with low likelihood of becoming active cancer. Category 3 - 6-month follow-up. Probably benign. Short-term follow-up suggested. Nodules with low likelihood of becoming active cancer. Category 4A - 3-month follow-up and CT/PET if >8 mm in size. Suspicious finding. Findings which require additional testing. Category 4B - Findings which require additional testing and tissue sampling. Suspicious finding. Category 4X - Category 3 or 4 nodules with additional features or imaging findings that increases the suspicion of malignancy. Modifier S- Potentially clinically significant finding. (Non lung cancer) RADIATION DOSE DELIVERED: 34.48mGy.cm Total DLP 34.48mGy.cmTotal DLP DATA REPOSITORY: All CT scans at this facility are submitted to the National Radiology Data Registry (NRDR) Dose Index Registry (DIR) with the [employer] (ACR). RADIATION OPTIMIZATION: All CT scans at this facility use at least one of these dose optimization techniques: automated exposure control; mA and/or kV adjustment per patient size (includes targeted exams where dose is matched to clinical indication); or iterative reconstruction.
--- NOTE | 2025-10-01 | DI.MAMMO_ITS ---
Exam(s) MAMMO SCREENING EXAM: MAMMO SCREENING CLINICAL HISTORY: Z12.31 Screening TECHNIQUE: Bilateral full field digital CC and MLO mammographic images were obtained with 3D tomosynthesis and utilizing computer aided detection (CAD). COMPARISON: Comparison is made with prior examinations. FINDINGS: Masses/Architectural Distortion: No suspicious masses or areas of architectural distortion are present. Microcalcifications: No suspicious pleomorphic-type are seen. Skin Thickening/Nipple Retraction: None. IMPRESSION: 1. No significant interval change with no specific features of malignancy noted. 2. Unless there is more urgent need, screening mammography is recommended, as per [employer] guidelines. BI-RADS Category 1 - Negative Breast Density - Category C - The breast are heterogeneously dense, which may obscure small masses. Breast density Category C or D implies that the patient has dense breast tissue. Dense breast tissue can make it harder to find cancer on a mammogram. Dense breast tissue is also associated with an increased risk of breast cancer. This information about the result of the mammogram report was provided to the patient to raise their awareness. Use this report when you speak with the patient about their risks for breast cancer, which includes their family history. At that time, you may recommend additional screening tests (Ultrasound or MRI) as these tests may add significant information. A negative radiographic report should not delay biopsy if a dominant or clinically suspicious mass is present. Up to ten percent of cancers are not identified on mammography. A negative report may reinforce clinical impression. Adenosis and dense breasts may obscure an underlying neoplasm. False positive reports average 6 to 10%. Patient will receive a letter notifying them of these results.
== END ==
PROVIDERS: PCP Physician Assistant Medical; Visit Provider Physician Assistant
DX: Z87.891 Personal history of nicotine dependence (principal); Z12.31 Encounter for screening mammogram for malignant neoplasm of breast
CPT/HCPCS: 71271; 77063; 77067

== ENCOUNTER 2025-10-11 13:12 | Outpatient (RCR) | payer MEDICARE, SELFPAY | END 2025-11-07 23:59 | disposition home or self-care (01) | LOC: INF 13:12 | PROVIDERS: PCP Physician Assistant Medical; Visit Provider Internal Medicine Hematology & Oncology | DX: E83.119 Hemochromatosis, unspecified (principal) | CPT/HCPCS: 99195 ==